=== PATIENT | male | born 1930 | race Caucasian/White ===

== ENCOUNTER 2017-02-09 14:02 | Emergency (ER) | payer MEDICARE, OTHER ==
[2017-02-09 14:38] VITALS: BP 117/53
--- NOTE | 2017-02-09 15:09 | EDM.PDOC ---
ED HPI RENAL/ - General Chief Complaint: Genitourinary Problem Stated Complaint: URINARY CATHETER ISSUE Time Seen by Provider: 02/09/17 15:01 Source: Reports: Patient, RN notes reviewed History Limitations: Reports: No limitations - History of Present Illness INITIAL COMMENTS - FREE TEXT/NARRATIVE: 86-year-old gentleman presents emergency department today with problem with his Quinones catheter the catheter itself is functioning but the strap that holds the bag to his leg broken - Related Data Allergies/ADRs: Allergies Allergy/AdvReac Type Severity Reaction Status Date / Time No Known Allergies Allergy Verified 02/09/17 14:51 Home Meds: Home Meds atorvaSTATin [Lipitor] 10 mg PO BEDTIME 04/25/15 [History] Sulfamethoxazole/Trimethoprim [Sulfamethoxazole-Tmp Ds Tablet] 1 cap PO BID [History] Aspirin [Ecotrin] 81 mg PO DAILY 01/05/17 [History] Tamsulosin [Tamsulosin 24 Hr] 0.4 mg PO DAILY 01/05/17 [History] Past Medical History HEENT History: Reports: 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 Cardiovascular History: Reports: Heart murmur, High cholesterol Genitourinary History: Reports: BPH, Retention, urinary Musculoskeletal History: Reports: Arthritis Other Oncologic History: rt ear Other Dermatologic History: rt ear cancer - Infectious Disease History Infectious Disease History: Reports: Other (see below) Other Infectious Disease History: unknown - Past Surgical History GI Surgical History: Reports: Appendectomy, Colonoscopy Social & Family History - Tobacco Use Smoking Status *Q: Never Smoker - Caffeine Use Caffeine Use: Reports: Coffee - Alcohol Use Days Per Week of Alcohol Use: 0 - Recreational Drug Use Recreational Drug Use: No ED ROS GENERAL - Review of Systems Review Of Systems: See Below Constitutional: Reports: no symptoms GI/Abdominal: Reports: No symptoms : Reports: no symptoms ED EXAM, RENAL/ - Physical Exam Exam: See Below Text/Narrative:: Nursing staff fireplace the leg bag is functioning no issues Exam Limited By: No limitations General Appearance: alert (He says none), WD/WN, no apparent distress Course - Vital Signs Last Recorded V/S: Last Vital Signs Temp 96.6 F 02/09/17 14:57 Pulse 70 02/09/17 14:57 Resp 15 02/09/17 14:57 BP 117/53 L 02/09/17 14:57 Pulse Ox 97 02/09/17 14:57 Departure - Departure Time of Disposition: 15:09 Disposition: Home, Self-Care 01 Condition: good Clinical Impression: Urinary catheter complication Qualifiers: Encounter type: initial encounter Qualified Code(s): T83.9XXA - Unspecified complication of genitourinary prosthetic device, implant and graft, initial encounter Forms: ED Department Discharge Additional Instructions: Followup with primary care as needed - Assessment/Plan Plan: Assessment Acuity = acute Site and laterality = leg bag strap failure Etiology = stress fracture of the plastic none Manifestations = none Location of injury = home Lab values = none Plan Catheter is functioning leg bag appears to be secured in place followup with primary care as needed Patient was in agreement with the plan all questions were answered, they were instructed to return to the emergency department or call for worsening symptoms. This note was dictated using [employer] voice recognition software please call with any questions.
== END 2017-02-09 15:18 | disposition home or self-care (01) ==
LOC: JP.ED 14:02
DX: T83.9XXA Unspecified complication of genitourinary prosthetic device, implant and graft, initial encounter (principal); Z79.82 Long term (current) use of aspirin; Z79.899 Other long term (current) drug therapy; E78.00 Pure hypercholesterolemia, unspecified; Z90.49 Acquired absence of other specified parts of digestive tract
CPT/HCPCS: 99282; 99283

== ENCOUNTER 2017-03-16 16:17 | Emergency (ER) | payer MEDICARE, OTHER ==
[2017-03-16 16:33] VITALS: BP 110/62
--- NOTE | 2017-03-16 17:13 | EDM.PDOC ---
ED HPI RENAL/ - General Chief Complaint: Genitourinary Problem Stated Complaint: CATH PROBLEMS Time Seen by Provider: 03/16/17 17:05 Source: Reports: Patient, RN notes reviewed History Limitations: Reports: No limitations - History of Present Illness INITIAL COMMENTS - FREE TEXT/NARRATIVE: 78-year-old gentleman presents emergency department today with complaints of catheter problems he does have a leg bag in place wears a chronic catheter unfortunately he had difficulty connecting his catheter after he emptied the bag. This catheter has been in for about a month and he would like to change today as well, denies any other symptoms - Related Data Allergies/ADRs: Allergies Allergy/AdvReac Type Severity Reaction Status Date / Time No Known Allergies Allergy Verified 02/09/17 14:51 Home Meds: Home Meds atorvaSTATin [Lipitor] 10 mg PO BEDTIME 04/25/15 [History] Sulfamethoxazole/Trimethoprim [Sulfamethoxazole-Tmp Ds Tablet] 1 cap PO BID [History] Aspirin [Ecotrin] 81 mg PO DAILY 01/05/17 [History] Tamsulosin [Tamsulosin 24 Hr] 0.4 mg PO DAILY 01/05/17 [History] Past Medical History HEENT History: Reports: 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 Cardiovascular History: Reports: Heart murmur, High cholesterol Genitourinary History: Reports: BPH, Retention, urinary Musculoskeletal History: Reports: Arthritis Other Oncologic History: rt ear Other Dermatologic History: rt ear cancer - Infectious Disease History Infectious Disease History: Reports: Other (see below) Other Infectious Disease History: unknown - Past Surgical History GI Surgical History: Reports: Appendectomy, Colonoscopy Social & Family History - Tobacco Use Smoking Status *Q: Never Smoker - Caffeine Use Caffeine Use: Reports: Coffee - Alcohol Use Days Per Week of Alcohol Use: 0 - Recreational Drug Use Recreational Drug Use: No ED ROS GENERAL - Review of Systems Review Of Systems: See Below Constitutional: Reports: no symptoms Respiratory: Reports: No Symptoms Cardiovascular: Reports: No symptoms : Reports: other (Catheter problem) ED EXAM, RENAL/ - Physical Exam Exam: See Below Text/Narrative:: Catheter had broken apart above the valve is difficult for this to fit back together, new Bag catheter replaced Exam Limited By: No limitations GI/Abdominal: soft, non tender Course - Vital Signs Last Recorded V/S: Last Vital Signs Temp 98.6 F 03/16/17 16:32 Pulse 62 03/16/17 16:32 Resp 18 03/16/17 16:32 BP 110/62 03/16/17 16:32 Pulse Ox - Orders/Labs/Meds Orders: Active Orders 24 hr Category Date Time Status Quinones Catheter Insertion [Insert Urinary Catheter] [OM. Care 03/16/17 17:15 Ordered PC] Q24H Urinary Catheter Assessment [RC] ASDIRECTED Care 03/16/17 17:09 Ordered Departure - Departure Time of Disposition: 17:12 Disposition: Home, Self-Care 01 Condition: good Clinical Impression: Urinary catheter complication Qualifiers: Encounter type: initial encounter Qualified Code(s): T83.9XXA - Unspecified complication of genitourinary prosthetic device, implant and graft, initial encounter Forms: ED Department Discharge Additional Instructions: Keep your regular followup appointments with Dr. Tellez - My Orders Last 24 Hours: My Active Orders 03/16/17 17:09 Urinary Catheter Assessment [RC] ASDIRECTED 03/16/17 17:15 Quinones Catheter Insertion [Insert Urinary Catheter] [OM.PC] Q24H - Assessment/Plan Last 24 Hours: My Active Orders 03/16/17 17:09 Urinary Catheter Assessment [RC] ASDIRECTED 03/16/17 17:15 Quinones Catheter Insertion [Insert Urinary Catheter] [OM.PC] Q24H Plan: Assessment Acuity = acute Site and laterality = catheter problem mechanical Etiology = mechanical failure Manifestations = none Location of injury = home Lab values = none Plan Keep regular follow up appointment with primary care Patient was in agreement with the plan all questions were answered, they were instructed to return to the emergency department or call for worsening symptoms. This note was dictated using [employer] voice recognition software please call with any questions.
== END 2017-03-16 17:42 | disposition home or self-care (01) ==
LOC: JP.ED 16:17
DX: T83.9XXA Unspecified complication of genitourinary prosthetic device, implant and graft, initial encounter (principal); E78.00 Pure hypercholesterolemia, unspecified; Z79.82 Long term (current) use of aspirin; Z79.899 Other long term (current) drug therapy; Z90.49 Acquired absence of other specified parts of digestive tract; Z85.22 Personal history of malignant neoplasm of nasal cavities, middle ear, and accessory sinuses
CPT/HCPCS: 51702; 99282; 99283-25

== ENCOUNTER 2017-06-09 11:05 | Emergency (ER) | payer MEDICARE, OTHER ==
--- NOTE | 2017-06-09 11:36 | EDM.PDOC ---
ED HPI GENERAL MEDICAL PROBLEM - General Chief Complaint: Genitourinary Problem Stated Complaint: ISSUES WITH CATH Time Seen by Provider: 06/09/17 11:33 Source of Information: Reports: Patient History Limitations: Reports: No Limitations - History of Present Illness INITIAL COMMENTS - FREE TEXT/NARRATIVE: Patient has urinary leg bag but the stomach wraps broken so he presented here to get new straps. The nurses provided this for him in he was discharged. He had no questions and was in stable condition. - Related Data Allergies Allergy/AdvReac Type Severity Reaction Status Date / Time No Known Allergies Allergy Verified 02/09/17 14:51 Home Meds: Home Meds atorvaSTATin [Lipitor] 10 mg PO BEDTIME 04/25/15 [History] Sulfamethoxazole/Trimethoprim [Sulfamethoxazole-Tmp Ds Tablet] 1 cap PO BID [History] Aspirin [Ecotrin] 81 mg PO DAILY 01/05/17 [History] Tamsulosin [Tamsulosin 24 Hr] 0.4 mg PO DAILY 01/05/17 [History] Past Medical History HEENT History: Reports: Hard of Hearing Other HEENT History: cancer rt. ear Cardiovascular History: Reports: Heart Murmur, High Cholesterol Genitourinary History: Reports: BPH, Retention, Urinary Musculoskeletal History: Reports: Arthritis Other Oncologic History: rt ear Other Dermatologic History: rt ear cancer - Infectious Disease History Infectious Disease History: Reports: Other (See Below) Other Infectious Disease History: unknown - Past Surgical History GI Surgical History: Reports: Appendectomy, Colonoscopy Social & Family History - Tobacco Use Smoking Status *Q: Never Smoker - Caffeine Use Caffeine Use: Reports: Coffee - Alcohol Use Days Per Week of Alcohol Use: 0 - Recreational Drug Use Recreational Drug Use: No ED ROS GENERAL - Review of Systems Review Of Systems: ROS reveals no pertinent complaints other than HPI. ED EXAM, RENAL/ - Physical Exam Exam: Not Obtained Departure - Departure Time of Disposition: 11:35 Disposition: Home, Self-Care 01 Condition: Good Clinical Impression: Urinary catheter complication Qualifiers: Encounter type: initial encounter Qualified Code(s): T83.9XXA - Unspecified complication of genitourinary prosthetic device, implant and graft, initial encounter - Discharge Information Forms: ED Department Discharge
[2017-06-09 11:37] VITALS: BP 115/89
== END 2017-06-09 11:45 | disposition home or self-care (01) ==
LOC: JP.ED 11:05
DX: T83.9XXA Unspecified complication of genitourinary prosthetic device, implant and graft, initial encounter (principal); Z79.899 Other long term (current) drug therapy; Z79.82 Long term (current) use of aspirin; R01.1 Cardiac murmur, unspecified; E78.00 Pure hypercholesterolemia, unspecified; N40.1 Benign prostatic hyperplasia with lower urinary tract symptoms; R33.8 Other retention of urine
CPT/HCPCS: 99282; 99283

== ENCOUNTER 2017-06-29 10:44 | Observation (INO) | payer MEDICARE, OTHER ==
[2017-06-29] MEDS ORDERED: Sodium Chloride 0.9% 10 ML Syringe FLUSH PRN ×2 (11:27→16:16)
[2017-06-29] MEDS ORDERED: Sodium Chloride 0.9% 1,000 ML IV ONE (11:28)
--- NOTE | 2017-06-29 11:36 | EDM.PDOC ---
ED HPI GENERAL MEDICAL PROBLEM - General Chief Complaint: Syncope Stated Complaint: MED VIA [place]TH- SYNCOPE Time Seen by Provider: 06/29/17 11:10 Source of Information: Reports: Patient, Family History Limitations: Reports: No Limitations - History of Present Illness INITIAL COMMENTS - FREE TEXT/NARRATIVE: Roland is an 86 year old male who presents to the ED today after having a syncopal episode at the [facility] this morning. Patient was at a pancake breakfast this morning when he slumped over and started drooling. Patient then became unresponsive for approx 2 minutes, he awoke after first responders arrived and started giving patient oxygen. Patient on arrival here is alert and oriented, he denies any pain. Patient did have a fall last week and sustained a posterior head laceration. He denies any visual changes or headache. Patient reports "he thinks" he has been eating well, not drinking well per family. Patient denies any vomiting or diarrhea, endorses a long standing hx with constipation. Patient's family is here with him, he lives alone and according to his niece has steadily been declining over the last few months. They care concerned for his safety and ongoing ability to care for himself independently. Onset: Today, Sudden - Related Data Allergies Allergy/AdvReac Type Severity Reaction Status Date / Time No Known Allergies Allergy Verified 06/29/17 11:09 Home Meds: Home Meds atorvaSTATin [Lipitor] 10 mg PO BEDTIME 04/25/15 [History] Aspirin [Ecotrin] 81 mg PO DAILY 01/05/17 [History] Finasteride [Finasteride] 1 tab PO DAILY 06/29/17 [History] Past Medical History HEENT History: Reports: Hard of Hearing Other HEENT History: cancer rt. ear Cardiovascular History: Reports: Heart Murmur, High Cholesterol Genitourinary History: Reports: BPH, Retention, Urinary Musculoskeletal History: Reports: Arthritis Other Oncologic History: rt ear Other Dermatologic History: rt ear cancer - Infectious Disease History Infectious Disease History: Reports: Other (See Below) Other Infectious Disease History: unknown - Past Surgical History GI Surgical History: Reports: Appendectomy, Colonoscopy Social & Family History - Tobacco Use Smoking Status *Q: Never Smoker - Caffeine Use Caffeine Use: Reports: Coffee - Alcohol Use Days Per Week of Alcohol Use: 0 - Recreational Drug Use Recreational Drug Use: No ED ROS GENERAL - Review of Systems Review Of Systems: See Below Constitutional: Reports: Decreased Appetite, Weight Loss HEENT: Reports: No Symptoms Respiratory: Reports: No Symptoms Cardiovascular: Reports: Edema (RLE, not new per family) Endocrine: Reports: Fatigue GI/Abdominal: Reports: Constipation : Reports: Urinary Retention (indwelling rashid) Musculoskeletal: Reports: No Symptoms Skin: Reports: No Symptoms, Other (healing lac to head) Neurological: Reports: Syncope Psychiatric: Reports: No Symptoms Hematologic/Lymphatic: Reports: No Symptoms - Physical Exam Exam: See Below Exam Limited By: No Limitations General Appearance: Alert, WD/WN, No Apparent Distress Eye Exam: Bilateral Eye: EOMI, PERRL Throat/Mouth: Normal Oropharynx Head Exam: Scalp Lacerations (posterior right scalp, healing well) Neck: Supple, Full Range of Motion. No: Tender Midline Respiratory/Chest: No Respiratory Distress, Lungs Clear Cardiovascular: Normal Peripheral Pulses, Regular Rate, Rhythm, No Murmur GI/Abdominal: Normal Bowel Sounds, Soft, Non-Tender, No Distention Neuro Exam (Abbreviated): Alert, Oriented Extremities: Normal Inspection Psychiatric: Normal Affect EKG INTERPRETATION EKG Date: 06/29/17 Time: 11:37 Rhythm: NSR Rate (Beats/Min): 80 [place]: Normal P-Wave: Present QRS: RBBB ST-T: Normal [place]/PQ Interval: Prolonged Comparison: No Change (from 04/26/2015) Course - Vital Signs Last Recorded V/S: Last Vital Signs Temp 36.8 C 06/29/17 14:23 Pulse 62 06/29/17 14:23 Resp 16 06/29/17 14:23 BP 122/53 L 06/29/17 14:23 Pulse Ox 97 06/29/17 14:23 Orthostatic Blood Pressure [ 115/63 Standing] Orthostatic Blood Pressure [ 114/63 Sitting] Orthostatic Blood Pressure [ 108/63 Supine] Roland is an 86 year old male with a hx of urinary retention, pancytopenia, and syncope who presents to the ED today post syncopal episode at the [facility]. Please refer to HPI and focused exam. Patient on exam is alert and oriented, he does not exhibit any neuro/focal deficits. He is non-toxic appearing. Modestly dehydrated. PIV established, orthostatic vital signs as noted above, patient given 1 liter of NS over 2 hours. Concerns for head injury/ intracranial process given hx of fall one week ago, CT scan obtained of head and is unremarkable. EKG on arrival shows a RBBB and is unchanged from 2 years ago. Patient denies any pain/sob/vomiting/diarrhea. He does have unilateral right LE +2 pitting edema which patient states is not new. 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 Blood work today returns with a normal white count, HGB is mildly low at 11.1. Platelet count is normal at 204. CMP returns with elevated BUN of 26, creatinine of 1.5 and GFR of 57. Remaining CMP is within normal limits. I did check a troponin and BNP on patient given his hx, these are unremarkable as well. Patient does endorse feeling generally weak and family is extremely concerned about patient living alone as well as driving which he continues to do. administrative services officer spoke with patient and family, patient really has no desire to live anywhere else. CT scan came back with left subdural hematoma, non-acute appearing, 7 mm in size with no midline shift. Likely from fall last week. I spoke with [facility], Neurosurgeon there, Dr. Elliott reviewed the CT and felt that patient was stable to stay here for observation with repeat CT scan in the morning. Patient should not receive any NSAIDs such as ibuprofen or Aspirin and should avoid any alcohol. Patient does not need to follow up from a neurosurgery standpoint unless repeat CT scan is worrisome or other concerns arise. I discussed patient and work up with Dr. Robledo, hospitalist, who has agreed to admit patient. Patient and family updated. UA does return positive for nitrite, 10-20 WBC's and moderate leukocyte esterase. UC pending. Will inform Dr. Robledo who can decide on antibiotic therapy. - Orders/Labs/Meds Orders: Active Orders 24 hr Category Date Time Status Orthostatic Vital Signs [RC] ASDIRECTED Care 06/29/17 11:26 Active Peripheral IV Care [RC] . DIRECTED Care 06/29/17 11:27 Active Head wo Cont [CT] Stat Exams 06/29/17 11:38 Taken CULTURE URINE [RM] Stat Lab 06/29/17 14:41 Ordered Sodium Chloride 0.9% [Saline Flush] Med 06/29/17 11:27 Active 10 ml FLUSH ASDIRECTED PRN Peripheral IV Insertion Adult [OM.PC] Routine Oth 06/29/17 11:27 Ordered Medication Orders Sodium Chloride (Saline Flush) 10 ml FLUSH ASDIRECTED PRN PRN Reason: Keep Vein Open Labs: Laboratory Tests 06/29/17 06/29/17 06/29/17 Range/Units 11:35 11:35 11:35 WBC 9.0 (4.5-11.0) K/uL RBC 3.33 L (4.30-5.90) M/uL Hgb 11.1 L (12.0-15.0) g/dL Hct 33.4 L (40.0-54.0) % MCV 100 H (80-98) fL MCH 33 H (27-31) pg MCHC 33 (32-36) % Plt Count 204 (150-400) K/uL Neut % (Auto) 85 H (36-66) % Lymph % (Auto) 5 L (24-44) % Morris % (Auto) 9 H (2-6) % Eos % (Auto) 0 L (2-4) % Baso % (Auto) 1 (0-1) % Sodium 142 (140-148) mmol/L Potassium 3.9 (3.6-5.2) mmol/L Chloride 107 (100-108) mmol/L Carbon Dioxide 31 (21-32) mmol/L Anion Gap 3.6 L (5.0-14.0) mmol/L BUN 26 H D (7-18) mg/dL Creatinine 1.2 D (0.8-1.3) mg/dL Est Cr Clr Drug Dosing 42.73 mL/min Estimated GFR (MDRD) 57 L (>60) Glucose 185 H (74-106) mg/dL Calcium 8.4 L (8.5-10.1) mg/dL Total Bilirubin 0.7 (0.2-1.0) mg/dL AST 24 (15-37) U/L ALT 20 (12-78) U/L Alkaline Phosphatase 70 (46-116) U/L Troponin I < 0.017 (0.000-0.056) ng/mL [id number]-I-Zbfoatcftal Pept 212 (5-450) pg/mL Total Protein 6.7 (6.4-8.2) g/dL Albumin 3.1 L (3.4-5.0) g/dL Globulin 3.6 H (2.3-3.5) g/dL Albumin/Globulin Ratio 0.9 L (1.2-2.2) Urine Color Urine Appearance Urine pH (4.5-8.0) Ur Specific [place] (1.008-1.030) Urine Protein (NEGATIVE) mg/dL Urine Glucose (UA) (NEGATIVE) mg/dL Urine Ketones (NEGATIVE) mg/dL Urine Occult Blood (NEGATIVE) Urine Nitrite (NEGAITVE) Urine Bilirubin (NEGATIVE) Urine Urobilinogen (NORMAL) mg/dL Ur Leukocyte Esterase (NEGATIVE) Urine RBC (0-5) Urine WBC (0-5) Ur Epithelial Cells Amorphous Sediment Urine Bacteria Urine Mucus 06/29/17 Range/Units 13:29 WBC (4.5-11.0) K/uL RBC (4.30-5.90) M/uL Hgb (12.0-15.0) g/dL Hct (40.0-54.0) % MCV (80-98) fL MCH (27-31) pg MCHC (32-36) % Plt Count (150-400) K/uL Neut % (Auto) (36-66) % Lymph % (Auto) (24-44) % Morris % (Auto) (2-6) % Eos % (Auto) (2-4) % Baso % (Auto) (0-1) % Sodium (140-148) mmol/L Potassium (3.6-5.2) mmol/L Chloride (100-108) mmol/L Carbon Dioxide (21-32) mmol/L Anion Gap (5.0-14.0) mmol/L BUN (7-18) mg/dL Creatinine (0.8-1.3) mg/dL Est Cr Clr Drug Dosing mL/min Estimated GFR (MDRD) (>60) Glucose (74-106) mg/dL Calcium (8.5-10.1) mg/dL Total Bilirubin (0.2-1.0) mg/dL AST (15-37) U/L ALT (12-78) U/L Alkaline Phosphatase (46-116) U/L Troponin I (0.000-0.056) ng/mL Kkk-C-Sivkmbnbbtr Pept (5-450) pg/mL Total Protein (6.4-8.2) g/dL Albumin (3.4-5.0) g/dL Globulin (2.3-3.5) g/dL Albumin/Globulin Ratio (1.2-2.2) Urine Color Yellow Urine Appearance Cloudy Urine pH 6.0 (4.5-8.0) Ur Specific [place] 1.020 (1.008-1.030) Urine Protein Negative (NEGATIVE) mg/dL Urine Glucose (UA) Normal (NEGATIVE) mg/dL Urine Ketones Negative (NEGATIVE) mg/dL Urine Occult Blood Moderate (NEGATIVE) Urine Nitrite Positive H (NEGAITVE) Urine Bilirubin Small (NEGATIVE) Urine Urobilinogen 4 (NORMAL) mg/dL Ur Leukocyte Esterase Moderate (NEGATIVE) Urine RBC 0-5 (0-5) Urine WBC 10-20 H (0-5) Ur Epithelial Cells Not seen Amorphous Sediment Rare Urine Bacteria Moderate Urine Mucus Not seen Meds: Medications Generic Name Dose Route Start Last Admin Trade Name Freq PRN Reason Stop Dose Admin Sodium Chloride 10 ml 06/29/17 11:27 Saline Flush FLUSH ASDIRECTED PRN Keep Vein Open Discontinued Medications Generic Name Dose Route Start Last Admin Trade Name Freq PRN Reason Stop Dose Admin Sodium Chloride 1,000 mls @ 500 mls/hr 06/29/17 11:28 06/29/17 12:46 Normal Saline IV 06/29/17 13:27 500 mls/hr .BOLUS ONE Administration Departure - Departure Time of Disposition: 15:30 Disposition: Admitted As Inpatient 64 Condition: Good Clinical Impression: Generalized weakness, Asymptomatic bacteriuria Subdural hematoma, post-traumatic Qualifiers: Encounter type: initial encounter Loss of consciousness presence/duration: with LOC of unspecified duration Qualified Code(s): S06.5X9A - Traumatic subdural hemorrhage with loss of consciousness of unspecified duration, initial encounter Syncope Qualifiers: Syncope type: vasovagal syncope Qualified Code(s): R55 - Syncope and collapse - Discharge Information Forms: ED Department Discharge - My Orders Last 24 Hours: My Active Orders 06/29/17 11:26 Orthostatic Vital Signs [RC] ASDIRECTED 06/29/17 11:27 Peripheral IV Care [RC] . DIRECTED Sodium Chloride 0.9% [Saline Flush] 10 ml FLUSH ASDIRECTED PRN Peripheral IV Insertion Adult [OM.PC] Routine 06/29/17 11:38 Head wo Cont [CT] Stat 06/29/17 14:41 CULTURE URINE [RM] Stat - Assessment/Plan Last 24 Hours: My Active Orders 06/29/17 11:26 Orthostatic Vital Signs [RC] ASDIRECTED 06/29/17 11:27 Peripheral IV Care [RC] . DIRECTED Sodium Chloride 0.9% [Saline Flush] 10 ml FLUSH ASDIRECTED PRN Peripheral IV Insertion Adult [OM.PC] Routine 06/29/17 11:38 Head wo Cont [CT] Stat 06/29/17 14:41 CULTURE URINE [RM] Stat
--- NOTE | 2017-06-29 15:32 | PCM.HP ---
H&P History of Present Illness - General Date of Service: 06/29/17 Admit Problem/Dx: Admission Diagnosis/Problem Admission Diagnosis/Problem Subdural hematoma Source of Information: Patient, Family, Provider History Limitations: Reports: No Limitations - History of Present Illness Initial Comments - Free Text/Narative: Mr. Shepherd is an 86-year-old gentleman who is admitted to observation status through the emergency department after experiencing a syncopal episode earlier today. Patient and family give a history that he has lost ground over the past few months and has become progressively more weak. Approximately one week ago he fell hitting the back of his head, this episode was unwitnessed but the patient does not think that he lost consciousness. Today he was out to eat breakfast with family members, for a few minutes before the syncopal episode reported not feeling well with weakness and lightheadedness. He then developed loss of consciousness and was out for a minute or 2. He feels well now and denies significant pain also denies any related chest pain or pressure or palpitations. Orthostatic vital signs in the emergency department were unremarkable and these had no significant rhythm abnormalities noted on cardiac monitoring. He does have an indwelling Quinones catheter because of bladder outlet obstruction, urinalysis today shows evidence of urinary tract infection. CT scan of the head shows a subacute subdural hematoma right likely related to his fall one week ago. CT scan has been reviewed by neurosurgery, there is no indication for surgery at this time and they've recommended that he remain off all blood thinners and have a follow-up CT scan of the head in the morning. - Related Data Allergies/Adverse Reactions: Allergies Allergy/AdvReac Type Severity Reaction Status Date / Time No Known Allergies Allergy Verified 06/29/17 11:09 Home Medications: Home Meds atorvaSTATin [Lipitor] 10 mg PO BEDTIME 04/25/15 [History] Aspirin [Ecotrin] 81 mg PO DAILY 01/05/17 [History] Finasteride [Finasteride] 1 tab PO DAILY 06/29/17 [History] Past Medical History HEENT History: Reports: Hard of Hearing Other HEENT History: cancer rt. ear Cardiovascular History: Reports: Heart Murmur, High Cholesterol Genitourinary History: Reports: BPH, Retention, Urinary Musculoskeletal History: Reports: Arthritis Other Oncologic History: rt ear Other Dermatologic History: rt ear cancer - Infectious Disease History Infectious Disease History: Reports: Other (See Below) Other Infectious Disease History: unknown - Past Surgical History GI Surgical History: Reports: Appendectomy, Colonoscopy Social & Family History - Tobacco Use Smoking Status *Q: Never Smoker - Caffeine Use Caffeine Use: Reports: Coffee - Alcohol Use Days Per Week of Alcohol Use: 0 - Recreational Drug Use Recreational Drug Use: No H&P Review of Systems - Review of Systems: Review Of Systems: See Below General: Reports: Weakness. Denies: Fever, Chills HEENT: Reports: Headaches Pulmonary: Reports: No Symptoms Cardiovascular: Reports: Lightheadedness, Syncope. Denies: Chest Pain, Palpitations, Dyspnea on Exertion, Orthopnea, PND, Edema Gastrointestinal: Reports: No Symptoms Genitourinary: Reports: No Symptoms Musculoskeletal: Reports: No Symptoms Skin: Reports: No Symptoms Psychiatric: Reports: No Symptoms Neurological: Reports: No Symptoms Hematologic/Lymphatic: Reports: No Symptoms Immunologic: Reports: No Symptoms Exam - Exam Exam: See Below - Vital Signs Vital Signs: Last Vital Signs Temp 98.2 F 06/29/17 14:23 Pulse 62 06/29/17 14:23 Resp 16 06/29/17 14:23 BP 122/53 L 06/29/17 14:23 Pulse Ox 97 06/29/17 14:23 Orthostatic Blood Pressure [ 115/63 Standing] Orthostatic Blood Pressure [ 114/63 Sitting] Orthostatic Blood Pressure [ 108/63 Supine] Weight: 156 lb 8.451 oz - Exam Quality Assessment: Urinary Catheter General: Alert, Oriented, Cooperative, Mild Distress HEENT: Conjunctiva Clear, Hearing Intact, Normal Nasal Septum, Posterior Pharynx Clear, Pupils Equal. No: Mucosa Moist & [place] Neck: Supple, Trachea Midline, +2 Carotid Pulse wo Bruit Lungs: Clear to Auscultation, Normal Respiratory Effort Cardiovascular: Regular Rate, Regular Rhythm, Normal S1, Normal S2. No: Systolic Murmur, Diastolic Murmur GI/Abdominal Exam: Normal Bowel Sounds, Soft, Non-Tender, No Distention Back Exam: Normal Inspection, Full Range of Motion, NT Extremities: Normal Inspection, Normal Range of Motion Skin: Warm, Dry, Intact Neurological: Cranial Nerves Intact, Strength Equal Bilateral, Normal Speech, Sensation Intact. No: Focal Deficit Neuro Extensive - Mental Status: Alert, Oriented x3, Normal Mood/Affect, Normal Cognition, Memory Intact - Patient Data Lab Results Last 24 hrs: Laboratory Results - last 24 hr 06/29/17 06/29/17 06/29/17 Range/Units 11:35 11:35 11:35 WBC 9.0 (4.5-11.0) K/uL RBC 3.33 L (4.30-5.90) M/uL Hgb 11.1 L (12.0-15.0) g/dL Hct 33.4 L (40.0-54.0) % MCV 100 H (80-98) fL MCH 33 H (27-31) pg MCHC 33 (32-36) % Plt Count 204 (150-400) K/uL Neut % (Auto) 85 H (36-66) % Lymph % (Auto) 5 L (24-44) % [place] % (Auto) 9 H (2-6) % Eos % (Auto) 0 L (2-4) % Baso % (Auto) 1 (0-1) % Sodium 142 (140-148) mmol/L Potassium 3.9 (3.6-5.2) mmol/L Chloride 107 (100-108) mmol/L Carbon Dioxide 31 (21-32) mmol/L Anion Gap 3.6 L (5.0-14.0) mmol/L BUN 26 H D (7-18) mg/dL Creatinine 1.2 D (0.8-1.3) mg/dL Est Cr Clr Drug Dosing 42.73 mL/min Estimated GFR (MDRD) 57 L (>60) Glucose 185 H (74-106) mg/dL Calcium 8.4 L (8.5-10.1) mg/dL Total Bilirubin 0.7 (0.2-1.0) mg/dL AST 24 (15-37) U/L ALT 20 (12-78) U/L Alkaline Phosphatase 70 (46-116) U/L Troponin I < 0.017 (0.000-0.056) ng/mL Dlk-Q-Zeebmllscnk Pept 212 (5-450) pg/mL Total Protein 6.7 (6.4-8.2) g/dL Albumin 3.1 L (3.4-5.0) g/dL Globulin 3.6 H (2.3-3.5) g/dL Albumin/Globulin Ratio 0.9 L (1.2-2.2) Urine Color Urine Appearance Urine pH (4.5-8.0) Ur Specific [place] (1.008-1.030) Urine Protein (NEGATIVE) mg/dL Urine Glucose (UA) (NEGATIVE) mg/dL Urine Ketones (NEGATIVE) mg/dL Urine Occult Blood (NEGATIVE) Urine Nitrite (NEGAITVE) Urine Bilirubin (NEGATIVE) Urine Urobilinogen (NORMAL) mg/dL Ur Leukocyte Esterase (NEGATIVE) Urine RBC (0-5) Urine WBC (0-5) Ur Epithelial Cells Amorphous Sediment Urine Bacteria Urine Mucus 06/29/17 Range/Units 13:29 WBC (4.5-11.0) K/uL RBC (4.30-5.90) M/uL Hgb (12.0-15.0) g/dL Hct (40.0-54.0) % MCV (80-98) fL MCH (27-31) pg MCHC (32-36) % Plt Count (150-400) K/uL Neut % (Auto) (36-66) % Lymph % (Auto) (24-44) % [place] % (Auto) (2-6) % Eos % (Auto) (2-4) % Baso % (Auto) (0-1) % Sodium (140-148) mmol/L Potassium (3.6-5.2) mmol/L Chloride (100-108) mmol/L Carbon Dioxide (21-32) mmol/L Anion Gap (5.0-14.0) mmol/L BUN (7-18) mg/dL Creatinine (0.8-1.3) mg/dL Est Cr Clr Drug Dosing mL/min Estimated GFR (MDRD) (>60) Glucose (74-106) mg/dL Calcium (8.5-10.1) mg/dL Total Bilirubin (0.2-1.0) mg/dL AST (15-37) U/L ALT (12-78) U/L Alkaline Phosphatase (46-116) U/L Troponin I (0.000-0.056) ng/mL Rwh-I-Hwuztcrtpwn Pept (5-450) pg/mL Total Protein (6.4-8.2) g/dL Albumin (3.4-5.0) g/dL Globulin (2.3-3.5) g/dL Albumin/Globulin Ratio (1.2-2.2) Urine Color Yellow Urine Appearance Cloudy Urine pH 6.0 (4.5-8.0) Ur Specific [place] 1.020 (1.008-1.030) Urine Protein Negative (NEGATIVE) mg/dL Urine Glucose (UA) Normal (NEGATIVE) mg/dL Urine Ketones Negative (NEGATIVE) mg/dL Urine Occult Blood Moderate (NEGATIVE) Urine Nitrite Positive H (NEGAITVE) Urine Bilirubin Small (NEGATIVE) Urine Urobilinogen 4 (NORMAL) mg/dL Ur Leukocyte Esterase Moderate (NEGATIVE) Urine RBC 0-5 (0-5) Urine WBC 10-20 H (0-5) Ur Epithelial Cells Not seen Amorphous Sediment Rare Urine Bacteria Moderate Urine Mucus Not seen Result Diagrams: 06/29/17 11:35 06/29/17 11:35 *Q Meaningful Use (ADM) - VTE *Q VTE Criteria *Q: VTE Mechanical Contraindications *Q: At Risk for Falls VTE Pharmacological Contraindications *Q: Risk of Bleeding - VTE Risk Assess *Q Each Risk Factor Represents 1 Point: None Total Score 1 Point Risk Factors: 0 Each Risk Factor Represents 2 Points: None Total Score 2 Point Risk Factors: 0 Each Risk Factor Represents 3 Points: Age 75 Years or Greater Total Score 3 Point Risk Factors: 3 Each Risk Factor Represents 5 Points: None Total Score 5 Point Risk Factors: 0 Venous Thromboembolism Risk Factor Score *Q: 3 - Stroke *Q Stroke Criteria *Q: - AMI *Q AMI Criteria *Q: Problem List Initiated/Reviewed/Updated: Yes Orders Last 24hrs: Active Orders 24 hr Category Date Time Status Patient Status Manage Transfer [TRANSFER] Routine ADT 06/29/17 14:46 Active Cardiac Monitoring [RC] .As Directed Care 06/29/17 14:46 Active Orthostatic Vital Signs [RC] ASDIRECTED Care 06/29/17 11:26 Active Peripheral IV Care [RC] . DIRECTED Care 06/29/17 11:27 Active Head wo Cont [CT] Stat Exams 06/29/17 11:38 Taken CULTURE URINE [RM] Stat Lab 06/29/17 14:44 Received Sodium Chloride 0.9% [Saline Flush] Med 06/29/17 11:27 Active 10 ml FLUSH ASDIRECTED PRN Peripheral IV Insertion Adult [OM.PC] Routine Oth 06/29/17 11:27 Ordered Resuscitation Status Routine Resus Stat 06/29/17 14:48 Ordered Medication Orders Sodium Chloride (Saline Flush) 10 ml FLUSH ASDIRECTED PRN PRN Reason: Keep Vein Open Assessment/Plan Comment:: ASSESSMENT AND PLAN Vasovagal syncope-syncopal episode this morning by history consistent with a vagal event -Cardiac monitoring -Orthostatic vital signs Subdural hematoma-subacute, likely related to recent fall. CT is been reviewed by neurosurgery, no indication for surgical intervention at the present time. -Neuro checks every 4 hours -Repeat CT scan in a.m. Urinary tract infection-indwelling Quinones catheter, urinalysis consistent with infection -IV fluids for hydration -Rocephin 1 g IV every 24 hours -Urine culture pending MAINTENANCE ISSUES -DVT prophylaxis;SCUDs, hold on anticoagulation because of subdural hematoma -GI prophylaxis;not indicated -Quinones catheter;indwelling Quinones catheter for management of bladder outlet obstruction -Nutrition;regular diet -Nicotinic dependence;not required CODE STATUS-full code ADMISSION STATUS-this patient will be admitted to observation status, expect no more than a one night hospital stay for evaluation and management of problems as outlined above. DISPOSITION-anticipate discharge to home after the hospital stay. PRIMARY CARE PROVIDER-
[2017-06-29] MEDS ORDERED: oxyCODONE 5 MG Tab PO PRN (16:16)
[2017-06-29] MEDS ORDERED: Ondansetron 4 MG/2 ML SDV IV PRN (16:16)
[2017-06-29] MEDS ORDERED: Polyethylene Glycol 3350 Powder 17 GM Packet PO PRN (16:16)
[2017-06-29] MEDS ORDERED: Acetaminophen 325 MG Tab PO PRN (16:16)
[2017-06-29] MEDS ORDERED: Docusate Sodium 100 MG Cap PO PRN (16:16)
[2017-06-29] MEDS ORDERED: Magnesium Hydroxide 400 MG/5 ML Susp 30 ML Cup PO PRN (16:16)
[2017-06-29] MEDS ORDERED: cefTRIAXone 1 GM in Sodium Chloride 0.9% 50 ML IV SCH (17:00)
[2017-06-29] MEDS: Sodium Chloride 0.9% 1,000 ML IV SCH (17:09)
[2017-06-29] MEDS ORDERED: Bacitracin Oint 1 GM U/D Packet TOP SCH (18:30)
[2017-06-29] MEDS ORDERED: atorvaSTATin 10 MG Tab PO SCH (21:00)
[2017-06-30] MEDS: Sodium Chloride 0.9% 1,000 ML IV SCH (01:26)
[2017-06-30 08:33] VITALS: BP 102/69
[2017-06-30] MEDS ORDERED: Finasteride 5 MG Tab PO SCH (09:00)
[2017-06-30] MEDS ORDERED: Bacitracin Oint 1 GM U/D Packet TOP SCH (09:00)
--- NOTE | 2017-06-30 11:10 | PCM.DCSUM1 ---
Discharge Summary - Hospital Course Brief History: Mr. Shepherd is an 86-year-old gentleman who was admitted to observation status following a vasovagal syncopal episode, subacute subdural hematoma, and urinary tract infection. - Discharge Data Discharge Date: 06/30/17 Discharge Disposition: Home, W Home Health Agency 06 Condition: Fair - Discharge Diagnosis/Problem(s) (1) UTI (urinary tract infection) due to urinary indwelling catheter SNOMED Code(s): 234926389 ICD Code: T83.511A - I/I REACT D/T INDWELLING URETHRAL CATHETER, INIT; N39.0 - URINARY TRACT INFECTION, SITE NOT SPECIFIED Status: Acute Current Visit: Yes (2) Subdural hematoma, post-traumatic SNOMED Code(s): 60437930 ICD Code: S06.5X9A - TRAUM SUBDR HEM W LOC OF UNSP DURATION, INIT Status: Acute Current Visit: Yes Qualifiers: Encounter type: initial encounter Loss of consciousness presence/duration: with LOC of unspecified duration Qualified Code(s): S06.5X9A - Traumatic subdural hemorrhage with loss of consciousness of unspecified duration, initial encounter (3) Syncope SNOMED Code(s): 373629889 ICD Code: R55 - SYNCOPE AND COLLAPSE Status: Acute Current Visit: Yes Qualifiers: Syncope type: vasovagal syncope Qualified Code(s): R55 - Syncope and collapse - Patient Summary/Data Hospital Course: Mr. Shepherd presented to the emergency department after he experienced a syncopal episode while at the [facility] in [place]. He became weak and lightheaded over. A few minutes and then experienced a transient episode of loss of consciousness. He has had previous episodes in the past that were similar to this and felt to be vaguely mediated. He was alert and oriented in the emergency department, one week prior to admission he fallen backwards and injured his had. CT scan of the head was obtained and did show evidence of a subacute subdural hematoma that was very small. CT scan was reviewed by neurosurgery and they recommended a follow-up CT scan the following morning, but there was no indication for surgical intervention. Vital signs were stable in the emergency department including orthostatic vitals and telemetry monitoring showed no significant dysrhythmias. Urinalysis did show evidence of urinary tract infection. On admission culture was obtained and he was started on IV fluids as well as IV Rocephin. He was placed on cardiac monitoring but had no significant dysrhythmias during hospital stay. Orthostatic vital signs were checked with no significant drops and neuro checks were obtained on a regular basis with no significant change in neurologic status. By the following morning he improved and was able to walk short distances using a walker. He will be discharged home with a 2 wheeled walker and will be scheduled for home care with home physical therapy and occupational therapy. Urine culture is pending at the time of discharge, he will be placed on oral antibiotic therapy with Omnicef 300 mg by mouth twice a day for an additional 6 days. He should have another follow-up CT scan of the head in 4 weeks and a follow-up appointment will be scheduled with his primary care provider Dr. Tellez within one week. Activity will be as tolerated, he's instructed to use the walker at all times when he is ambulating. He will remain on a regular diet. He has been instructed to avoid all anticoagulants including aspirin and nonsteroidal therapy. - Patient Instructions Diet: Usual Diet as Tolerated Activity: As Tolerated Other/Special Instructions: Schedule follow-up appointment with Dr. Tellez within one week. Patient will require a CT scan in one month for follow-up of his subdural hematoma. Please arrange for home care with home physical therapy and occupational therapy after discharge. - Discharge Plan Prescriptions/Med Rec: Cefdinir [Omnicef] 300 mg PO BID #12 cap Home Medications: Home Meds atorvaSTATin [Lipitor] 10 mg PO BEDTIME 04/25/15 [History] Aspirin [Ecotrin] 81 mg PO DAILY 01/05/17 [History] Finasteride 1 tab PO DAILY 06/29/17 [History] Cefdinir [Omnicef] 300 mg PO BID #12 cap 06/30/17 [Rx] Referrals: Enrique Tellez MD [Physician] - - Patient Data Vitals - Most Recent: Last Vital Signs Temp 98.2 F 06/30/17 08:30 Pulse 61 06/30/17 08:30 Resp 16 06/30/17 08:30 BP 102/69 06/30/17 08:30 Pulse Ox 95 06/30/17 08:30 Orthostatic Blood Pressure [ 112/64 Standing] Orthostatic Blood Pressure [ 114/63 Sitting] Orthostatic Blood Pressure [ 122/69 Supine] Weight - Most Recent: 156 lb 8.451 oz I&O - Last 24 hours: Intake & Output 06/29/17 06/30/17 06/30/17 22:59 06:59 14:59 Intake Total 807 893 280 Output Total 300 350 300 Balance 507 543 -20 Lab Results - Last 24 hrs: Laboratory Results - last 24 hr 06/29/17 06/30/17 06/30/17 Range/Units 16:58 05:30 05:30 WBC 6.7 (4.5-11.0) K/uL RBC 3.10 L (4.30-5.90) M/uL Hgb 10.4 L (12.0-15.0) g/dL Hct 31.3 L (40.0-54.0) % MCV 101 H (80-98) fL MCH 34 H (27-31) pg MCHC 33 (32-36) % Plt Count 188 (150-400) K/uL Neut % (Auto) 68 H (36-66) % Lymph % (Auto) 18 L (24-44) % [place] % (Auto) 9 H (2-6) % Eos % (Auto) 4 (2-4) % Baso % (Auto) 1 (0-1) % Sodium 142 (140-148) mmol/L Potassium 4.3 (3.6-5.2) mmol/L Chloride 110 H (100-108) mmol/L Carbon Dioxide 29 (21-32) mmol/L Anion Gap 7.3 (5.0-14.0) mmol/L BUN 19 H (7-18) mg/dL Creatinine 1.0 (0.8-1.3) mg/dL Est Cr Clr Drug Dosing 51.28 mL/min Estimated GFR (MDRD) > 60 (>60) Glucose 86 (74-106) mg/dL Calcium 8.0 L (8.5-10.1) mg/dL Troponin I < 0.017 (0.000-0.056) ng/mL Med Orders - Current: Current Medications Acetaminophen (Tylenol) 650 mg PO Q4H PRN PRN Reason: Pain (Mild 1-3)/fever Atorvastatin Calcium (Lipitor) 10 mg PO BEDTIME LORI Last Admin: 06/29/17 22:26 Dose: Not Given Bacitracin (Bacitracin Oint 1 Gm) 1 dose TOP DAILY [facility] Last Admin: 06/30/17 08:56 Dose: 1 dose Docusate Sodium (Colace) 100 mg PO BID PRN PRN Reason: Constipation Finasteride (Proscar) 5 mg PO DAILY [facility] Last Admin: 06/30/17 08:51 Dose: 5 mg Sodium Chloride (Normal Saline) 1,000 mls @ 125 mls/hr IV ASDIRECTED [facility] Last Admin: 06/30/17 01:26 Dose: 125 mls/hr Ceftriaxone Sodium 1 gm/ (Sodium Chloride) 50 mls @ 100 mls/hr IV Q24H [facility] Last Admin: 06/29/17 17:32 Dose: 100 mls/hr Magnesium Hydroxide (Milk Of Magnesia) 30 ml PO Q12H PRN PRN Reason: Constipation Ondansetron HCl (Zofran) 4 mg IV Q4H PRN PRN Reason: Nausea/Vomiting Oxycodone HCl (Oxycodone) 5 mg PO Q4H PRN PRN Reason: Pain (moderate 4-6) Polyethylene Glycol (Miralax) 17 gm PO DAILY PRN PRN Reason: Constipation Sodium Chloride (Saline Flush) 10 ml FLUSH ASDIRECTED PRN PRN Reason: Keep Vein Open Discontinued Medications Bacitracin (Bacitracin Oint 1 Gm) 1 dose TOP DAILY [facility] Last Admin: 06/29/17 19:35 Dose: 1 dose Sodium Chloride (Normal Saline) 1,000 mls @ 500 mls/hr IV .BOLUS ONE Stop: 06/29/17 13:27 Last Admin: 06/29/17 12:46 Dose: 500 mls/hr Sodium Chloride (Saline Flush) 10 ml FLUSH ASDIRECTED PRN PRN Reason: Keep Vein Open *Q Meaningful Use (DIS) - VTE *Q VTE Criteria *Q: VTE Mechanical Contraindications *Q: At Risk for Falls VTE Pharmacological Contraindications *Q: Risk of Bleeding - Stroke *Q Stroke Criteria *Q: - AMI *Q AMI Criteria *Q:
== END 2017-06-30 12:50 | disposition home health service (06) ==
LOC: JP.ED 10:44 → JP.MS 14:46
PROVIDERS: ADMIT Hospitalist; ATTEND Hospitalist
DX: T83.511A Infection and inflammatory reaction due to indwelling urethral catheter, initial encounter (principal); N39.0 Urinary tract infection, site not specified; S06.5X9A Traumatic subdural hemorrhage with loss of consciousness of unspecified duration, initial encounter; R55 Syncope and collapse; E78.00 Pure hypercholesterolemia, unspecified; N40.1 Benign prostatic hyperplasia with lower urinary tract symptoms; Z79.82 Long term (current) use of aspirin; Z79.899 Other long term (current) drug therapy; Z90.49 Acquired absence of other specified parts of digestive tract; Z98.890 Other specified postprocedural states; W19.XXXA Unspecified fall, initial encounter
CPT/HCPCS: 36415; 70450; 80048; 80053; 81001; 83880; 84484; 85025; 87086; 87088; 96361; 96365; 99285; A9270; G0378; J0696; J7040; J7050; 93010; 96375; 99217; 99220

== ENCOUNTER 2017-08-31 10:00 | Inpatient (IN) | payer MEDICARE, OTHER ==
--- NOTE | 2017-08-31 10:58 | EDM.PDOC ---
ED HPI GENERAL MEDICAL PROBLEM - General Chief Complaint: Cardiovascular Problem Stated Complaint: MEDICAL [facility]IA [facility] Time Seen by Provider: 08/31/17 10:47 Source of Information: Reports: Patient, Old Records, RN Notes Reviewed History Limitations: Reports: No Limitations - History of Present Illness INITIAL COMMENTS - FREE TEXT/NARRATIVE: 86-year-old gentleman presents emergency department today following a syncopal event, he has a known history of syncopal events thought to be vagal vagal in nature also history of subdural hematoma of unclear etiology. The particular event today he was sitting in an easy chair became unresponsive for a couple of minutes EMS services were called this was at his home they had some difficulty arousing him however he was aroused by the time he was placed on the transportation cart by the time he arrives to the emergency department he has no complaints and feels he is back to his normal self - Related Data Allergies Allergy/AdvReac Type Severity Reaction Status Date / Time No Known Allergies Allergy Verified 08/31/17 10:59 Home Meds: Home Meds atorvaSTATin [Lipitor] 10 mg PO BEDTIME 04/25/15 [History] Finasteride 1 tab PO DAILY 06/29/17 [History] Cefdinir [Omnicef] 300 mg PO BID #12 cap 06/30/17 [Rx] Past Medical History HEENT History: Reports: Hard of Hearing Other HEENT History: cancer rt. ear Cardiovascular History: Reports: Heart Murmur, High Cholesterol Genitourinary History: Reports: BPH, Retention, Urinary Musculoskeletal History: Reports: Arthritis Other Oncologic History: rt ear Other Dermatologic History: rt ear cancer - Infectious Disease History Infectious Disease History: Reports: Other (See Below) Other Infectious Disease History: unknown - Past Surgical History Head Surgeries/Procedures: Reports: None GI Surgical History: Reports: Appendectomy, Colonoscopy Social & Family History - Tobacco Use Smoking Status *Q: Never Smoker - Caffeine Use Caffeine Use: Reports: Coffee - Alcohol Use Days Per Week of Alcohol Use: 0 - Recreational Drug Use Recreational Drug Use: No ED ROS GENERAL - Review of Systems Review Of Systems: See Below Constitutional: Reports: No Symptoms HEENT: Reports: No Symptoms Respiratory: Reports: No Symptoms Cardiovascular: Reports: Syncope GI/Abdominal: Reports: No Symptoms : Reports: No Symptoms Musculoskeletal: Reports: No Symptoms Skin: Reports: No Symptoms ED EXAM, GENERAL - Physical Exam Exam: See Below Exam Limited By: No Limitations General Appearance: Alert, WD/WN, No Apparent Distress Eye Exam: Bilateral Eye: Normal Inspection Nose: Normal Inspection, Normal Mucosa, No Blood Throat/Mouth: Normal Inspection, Normal Lips, Normal Teeth, Normal Gums, Normal Oropharynx, Normal Voice, No Airway Compromise Head: Atraumatic, Normocephalic Neck: Normal Inspection, Supple, Non-Tender, Full Range of Motion Respiratory/Chest: No Respiratory Distress, Lungs Clear, Normal Breath Sounds, No Accessory Muscle Use Cardiovascular: Regular Rate, Rhythm, No Murmur GI/Abdominal: Soft, Non-Tender Extremities: Non-Tender, No Pedal Edema Course - Vital Signs Last Recorded V/S: Last Vital Signs Temp 95.7 F 08/31/17 10:38 Pulse 58 L 08/31/17 11:40 Resp 15 08/31/17 11:40 BP 114/72 08/31/17 11:40 Pulse Ox 99 08/31/17 11:40 - Orders/Labs/Meds Orders: Active Orders 24 hr Category Date Time Status EKG Documentation Completion [RC] ASDIRECTED Care 08/31/17 10:55 Active CULTURE URINE [RM] Urgent Lab 08/31/17 13:57 Ordered EKG 12 Lead [EK] Stat Ther 08/31/17 10:54 Ordered Labs: Laboratory Tests 08/31/17 08/31/17 08/31/17 Range/Units 11:06 11:06 11:14 WBC 7.0 (4.5-11.0) K/uL RBC 3.54 L (4.30-5.90) M/uL Hgb 11.7 L (12.0-15.0) g/dL Hct 35.5 L (40.0-54.0) % MCV 100 H (80-98) fL MCH 33 H (27-31) pg MCHC 33 (32-36) % Plt Count 244 (150-400) K/uL Neut % (Auto) 79 H (36-66) % Lymph % (Auto) 10 L (24-44) % [place] % (Auto) 9 H (2-6) % Eos % (Auto) 1 L (2-4) % Baso % (Auto) 1 (0-1) % Sodium 141 (140-148) mmol/L Potassium 4.4 (3.6-5.2) mmol/L Chloride 105 (100-108) mmol/L Carbon Dioxide 30 (21-32) mmol/L Anion Gap 5.7 (5.0-14.0) mmol/L BUN 23 H (7-18) mg/dL Creatinine 1.1 (0.8-1.3) mg/dL Est Cr Clr Drug Dosing 44.67 mL/min Estimated GFR (MDRD) > 60 (>60) Glucose 168 H (74-106) mg/dL Calcium 8.5 (8.5-10.1) mg/dL Urine Color Yellow Urine Appearance Turbid Urine pH 6.5 (4.5-8.0) Ur Specific [place] 1.015 (1.008-1.030) Urine Protein 30 H (NEGATIVE) mg/dL Urine Glucose (UA) Normal (NEGATIVE) mg/dL Urine Ketones Negative (NEGATIVE) mg/dL Urine Occult Blood Large (NEGATIVE) Urine Nitrite Positive H (NEGAITVE) Urine Bilirubin Negative (NEGATIVE) Urine Urobilinogen Normal (NORMAL) mg/dL Ur Leukocyte Esterase Large (NEGATIVE) Urine RBC Packed H (0-5) Urine WBC Packed H (0-5) Ur Epithelial Cells Not seen Amorphous Sediment Not seen Urine Bacteria Many Urine Mucus Not seen Departure - Departure Time of Disposition: 14:00 Disposition: Admitted As Inpatient 64 Condition: Fair Clinical Impression: UTI (urinary tract infection) due to urinary indwelling catheter Qualifiers: Indwelling urinary catheter type: indwelling urethral catheter Encounter type: initial encounter Qualified Code(s): T83.511A - Infection and inflammatory reaction due to indwelling urethral catheter, initial encounter; N39.0 - Urinary tract infection, site not specified Referrals: Enrique Tellez MD [Primary Care Provider] - Forms: ED Department Discharge - My Orders Last 24 Hours: My Active Orders 08/31/17 10:54 EKG 12 Lead [EK] Stat 08/31/17 10:55 EKG Documentation Completion [RC] ASDIRECTED 08/31/17 13:57 CULTURE URINE [RM] Urgent - Assessment/Plan Last 24 Hours: My Active Orders 08/31/17 10:54 EKG 12 Lead [EK] Stat 08/31/17 10:55 EKG Documentation Completion [RC] ASDIRECTED 08/31/17 13:57 CULTURE URINE [RM] Urgent Plan: Assessment Acuity = acute Site and laterality = urinary tract infection complicated in a patient with chronic urinary catheterization, Etiology = suspicious for bacterial cause Manifestations = weakness, syncopal event Location of injury = Home Lab values = 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
--- NOTE | 2017-08-31 15:01 | PCM.HP ---
H&P History of Present Illness - General Date of Service: 08/31/17 Admit Problem/Dx: Admission Diagnosis/Problem Admission Diagnosis/Problem Complicated urinary tract infection Source of Information: Patient, Family, Provider History Limitations: Reports: No Limitations - History of Present Illness Initial Comments - Free Text/Narative: Roland presents to the emergency room today after an episode of syncope where he was sitting in his chair and suddenly collapsed and was not able to be aroused. This episode lasted for several minutes before he slowly started to come around. There was no confusion afterwards. He relatively quickly felt back to his usual self after this. He was not aware of any preceding symptoms such as chest pain, palpitations or shortness of breath. He had a very mild headache this morning but that went away without any intervention. Things were fairly normal yesterday. He thinks maybe he's had some subjective fevers the past couple of days but has not measured any temperatures. No complaints of abdominal pain or nausea. No significant change with bowel habits. He has not noticed a change in the urine in his leg bag. 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 No recent sick contacts or travel. He is on a waiting list at a local assisted living and is wondering if he's still safe to be living at home. Workup in the emergency room suggested a complicated urinary tract infection. There is no evidence for sepsis at this time but with his weakness and syncope I think he would benefit from inpatient admission with IV antibiotics and some fluids. - Related Data Allergies/Adverse Reactions: Allergies Allergy/AdvReac Type Severity Reaction Status Date / Time No Known Allergies Allergy Verified 08/31/17 15:57 Home Medications: Home Meds atorvaSTATin [Lipitor] 10 mg PO BEDTIME 04/25/15 [History] Finasteride 1 tab PO DAILY 06/29/17 [History] Past Medical History HEENT History: Reports: Hard of Hearing Other HEENT History: cancer rt. ear Cardiovascular History: Reports: Heart Murmur, High Cholesterol Genitourinary History: Reports: BPH, Retention, Urinary Musculoskeletal History: Reports: Arthritis Other Oncologic History: rt ear Other Dermatologic History: rt ear cancer - Infectious Disease History Infectious Disease History: Reports: Other (See Below) Other Infectious Disease History: unknown - Past Surgical History Head Surgeries/Procedures: Reports: None GI Surgical History: Reports: Appendectomy, Colonoscopy Social & Family History - Family History Cardiac: Denies: CAD - Tobacco Use Smoking Status *Q: Never Smoker - Caffeine Use Caffeine Use: Reports: Coffee - Alcohol Use Days Per Week of Alcohol Use: 0 - Recreational Drug Use Recreational Drug Use: No H&P Review of Systems - Review of Systems: Review Of Systems: See Below Free Text/Narrative: A complete 12 point review of systems was obtained. Pertinent positives and negatives are noted in the history of present illness. All other systems were reviewed and were negative except as noted. Exam - Exam Exam: See Below - Vital Signs Vital Signs: Last Vital Signs Temp 36.9 C 08/31/17 14:29 Pulse 80 08/31/17 14:29 Resp 15 08/31/17 14:29 BP 102/57 L 08/31/17 14:29 Pulse Ox 98 08/31/17 14:29 Weight: 68.039 kg - Exam Quality Assessment: No: Supplemental Oxygen General: Alert, Oriented, Cooperative. No: Mild Distress HEENT: Conjunctiva Clear, Mucosa Moist & [place]. No: Scleral Icterus Neck: Supple, Trachea Midline. No: Lymphadenopathy Lungs: Clear to Auscultation, Normal Respiratory Effort Cardiovascular: Regular Rate, Regular Rhythm GI/Abdominal Exam: Normal Bowel Sounds, Soft, No Distention, Tender (Mild suprapubic tenderness) Back Exam: Normal Inspection. No: Muscle Spasm Extremities: Pedal Edema (Mild bilateral ankle edema). No: Increased Warmth Skin: Warm, Dry Neuro Extensive - Mental Status: Alert, Oriented x3, Nl Response to Commands Neuro Extensive - Motor, Sensory, Reflexes: CN II-XII Intact. No: Dysarthria, Abnormal Motor, Tremor Psychiatric: Alert, Normal Affect - Patient Data Lab Results Last 24 hrs: Laboratory Results - last 24 hr 08/31/17 08/31/17 08/31/17 Range/Units 11:06 11:06 11:14 WBC 7.0 (4.5-11.0) K/uL RBC 3.54 L (4.30-5.90) M/uL Hgb 11.7 L (12.0-15.0) g/dL Hct 35.5 L (40.0-54.0) % MCV 100 H (80-98) fL MCH 33 H (27-31) pg MCHC 33 (32-36) % Plt Count 244 (150-400) K/uL Neut % (Auto) 79 H (36-66) % Lymph % (Auto) 10 L (24-44) % [place] % (Auto) 9 H (2-6) % Eos % (Auto) 1 L (2-4) % Baso % (Auto) 1 (0-1) % Sodium 141 (140-148) mmol/L Potassium 4.4 (3.6-5.2) mmol/L Chloride 105 (100-108) mmol/L Carbon Dioxide 30 (21-32) mmol/L Anion Gap 5.7 (5.0-14.0) mmol/L BUN 23 H (7-18) mg/dL Creatinine 1.1 (0.8-1.3) mg/dL Est Cr Clr Drug Dosing 44.67 mL/min Estimated GFR (MDRD) > 60 (>60) Glucose 168 H (74-106) mg/dL Calcium 8.5 (8.5-10.1) mg/dL Urine Color Yellow Urine Appearance Turbid Urine pH 6.5 (4.5-8.0) Ur Specific [place] 1.015 (1.008-1.030) Urine Protein 30 H (NEGATIVE) mg/dL Urine Glucose (UA) Normal (NEGATIVE) mg/dL Urine Ketones Negative (NEGATIVE) mg/dL Urine Occult Blood Large (NEGATIVE) Urine Nitrite Positive H (NEGAITVE) Urine Bilirubin Negative (NEGATIVE) Urine Urobilinogen Normal (NORMAL) mg/dL Ur Leukocyte Esterase Large (NEGATIVE) Urine RBC Packed H (0-5) Urine WBC Packed H (0-5) Ur Epithelial Cells Not seen Amorphous Sediment Not seen Urine Bacteria Many Urine Mucus Not seen Result Diagrams: 08/31/17 11:06 08/31/17 11:06 EKG INTERPRETATION EKG Date: 08/31/17 Rhythm: NSR Rate (Beats/Min): 64 [place]: Normal P-Wave: Present QRS: RBBB ST-T: Normal QT: Normal EKG Interpretation Comments: Images personally reviewed 1 PVC noted *Q Meaningful Use (ADM) - VTE *Q VTE Criteria *Q: - VTE Risk Assess *Q Each Risk Factor Represents 1 Point: Swollen Legs, Current Total Score 1 Point Risk Factors: 1 Each Risk Factor Represents 2 Points: None Total Score 2 Point Risk Factors: 0 Each Risk Factor Represents 3 Points: Age 75 Years or Greater Total Score 3 Point Risk Factors: 3 Each Risk Factor Represents 5 Points: None Total Score 5 Point Risk Factors: 0 Venous Thromboembolism Risk Factor Score *Q: 4 - Stroke *Q Stroke Criteria *Q: - AMI *Q AMI Criteria *Q: - Problem List (1) UTI (urinary tract infection) due to urinary indwelling catheter SNOMED Code(s): 486139593 ICD Code: T83.511A - I/I REACT D/T INDWELLING URETHRAL CATHETER, INIT; N39.0 - URINARY TRACT INFECTION, SITE NOT SPECIFIED Status: Acute Current Visit: Yes Qualifiers: Indwelling urinary catheter type: indwelling urethral catheter Encounter type: initial encounter Qualified Code(s): T83.511A - Infection and inflammatory reaction due to indwelling urethral catheter, initial encounter; N39.0 - Urinary tract infection, site not specified (2) Syncope SNOMED Code(s): 569516262 ICD Code: R55 - SYNCOPE AND COLLAPSE Status: Acute Current Visit: No Qualifiers: Syncope type: vasovagal syncope Qualified Code(s): R55 - Syncope and collapse Problem List Initiated/Reviewed/Updated: Yes Orders Last 24hrs: Active Orders 24 hr Category Date Time Status Patient Status Manage Transfer [TRANSFER] Routine ADT 08/31/17 14:53 Ordered EKG Documentation Completion [RC] ASDIRECTED Care 08/31/17 10:55 Active CULTURE URINE [RM] Urgent Lab 08/31/17 14:00 Received Sodium Chloride 0.9% [Normal Saline] 1,000 ml Med 08/31/17 15:00 Active IV ASDIRECTED cefTRIAXone [Rocephin] 2 gm Med 08/31/17 15:00 Active Sodium Chloride 0.9% [Normal Saline] 50 ml IV Q24H Resuscitation Status Routine Resus Stat 08/31/17 14:54 Ordered EKG 12 Lead [EK] Stat Ther 08/31/17 10:54 Ordered Medication Orders Ceftriaxone Sodium 2 gm/ (Sodium Chloride) 50 mls @ 100 mls/hr IV Q24H [facility] Sodium Chloride (Normal Saline) 1,000 mls @ 125 mls/hr IV ASDIRECTED [facility] Assessment/Plan Comment:: Assessment and plan - Urinary tract infection related to indwelling catheter - this likely explains the syncope. He has a history of 1 previous infection. He does not appear septic but is too weak for outpatient management at this time. -ceftriaxone -urine culture -IV fluids -PT eval Saturday -Continue chronic indwelling catheter Symptomatic BPH - continue finasteride Maintenance issues - - DVT prophylaxis - SCD's - GI prophylaxis - not indicated - Nutrition - regular diet - Quinones catheter - chronic indwelling CODE STATUS - DNR/DNI Admission justification - This patient will be admitted for inpatient services and is medically appropriate meeting medical necessity for inpatient admission as outlined in my documentation. I reasonably expect the patient will require inpatient services that span a period time over 2 midnights. I reasonably expect this patient to be discharged or transferred within 96 hours after admission to the [facility]. Disposition - anticipate d/c to home with home care vs [facility] after the hospital stay Primary care physician - Dr Geoff Novak M.D.
[2017-08-31] MEDS ORDERED: Acetaminophen 325 MG Tab PO PRN (15:56)
[2017-08-31] MEDS ORDERED: Ondansetron 4 MG Tab.DIS PO PRN (15:56)
[2017-08-31] MEDS: Sodium Chloride 0.9% 1,000 ML IV SCH (16:32)
[2017-08-31] MEDS: cefTRIAXone 2 GM in Sodium Chloride 0.9% 50 ML IV SCH (16:32)
[2017-08-31] MEDS ORDERED: FLU Vacc TS 2017-18 (65yr UP)/PF 180 MCG/0.5 ML Syringe IM ONE (17:15)
[2017-08-31] MEDS: atorvaSTATin 10 MG Tab PO SCH (20:40)
[2017-09-01] MEDS: Sodium Chloride 0.9% 1,000 ML IV SCH ×2 (00:55→08:30)
[2017-09-01] MEDS: Finasteride 5 MG Tab PO SCH (08:31)
--- NOTE | 2017-09-01 12:09 | PCM.PN ---
- General Info Date of Service: 09/01/17 Functional Status: Reports: Pain Controlled, Tolerating Diet - Review of Systems General: Reports: Weakness Gastrointestinal: Denies: Abdominal Pain Systems Review Comment:: No acute events overnight. No complaints of chest pain or shortness of breath. Appetite has been okay. Energy is close to baseline. He still feels weak and requires assistance to get from the bed to the chair. No fevers. Urine culture is growing a gram negative rods. - Patient Data Vitals - Most Recent: Last Vital Signs Temp 36.6 C 09/01/17 10:59 Pulse 78 09/01/17 10:59 Resp 18 09/01/17 10:59 BP 134/67 09/01/17 10:59 Pulse Ox 97 09/01/17 10:59 Weight - Most Recent: 68.039 kg I&O - Last 24 Hours: Intake & Output 08/31/17 09/01/17 09/01/17 22:59 06:59 14:59 Intake Total 120 1433 480 Output Total 450 775 Balance -330 658 480 Lab Results Last 24 Hours: Laboratory Results - last 24 hr 09/01/17 09/01/17 Range/Units 04:48 04:48 WBC 9.1 (4.5-11.0) K/uL RBC 3.17 L (4.30-5.90) M/uL Hgb 10.3 L (12.0-15.0) g/dL Hct 31.9 L (40.0-54.0) % MCV 101 H (80-98) fL MCH 33 H (27-31) pg MCHC 32 (32-36) % Plt Count 219 (150-400) K/uL Sodium 141 (140-148) mmol/L Potassium 4.3 (3.6-5.2) mmol/L Chloride 109 H (100-108) mmol/L Carbon Dioxide 28 (21-32) mmol/L Anion Gap 8.3 (5.0-14.0) mmol/L BUN 21 H (7-18) mg/dL Creatinine 0.9 (0.8-1.3) mg/dL Est Cr Clr Drug Dosing 54.60 mL/min Estimated GFR (MDRD) > 60 (>60) Glucose 85 (74-106) mg/dL Calcium 7.8 L (8.5-10.1) mg/dL Med Orders - Current: Current Medications Acetaminophen (Tylenol) 650 mg PO Q4H PRN PRN Reason: Pain (Mild 1-3)/fever Atorvastatin Calcium (Lipitor) 10 mg PO BEDTIME [facility] Last Admin: 08/31/17 20:40 Dose: 10 mg Finasteride (Proscar) 5 mg PO DAILY [facility] Last Admin: 09/01/17 08:31 Dose: 5 mg Ceftriaxone Sodium 2 gm/ (Sodium Chloride) 50 mls @ 100 mls/hr IV Q24H [facility] Last Admin: 08/31/17 16:32 Dose: 100 mls/hr Sodium Chloride (Normal Saline) 1,000 mls @ 125 mls/hr IV ASDIRECTED [facility] Last Admin: 09/01/17 08:30 Dose: 125 mls/hr Ondansetron HCl (Zofran Odt) 4 mg PO Q6H PRN PRN Reason: Nausea able to take PO Polyethylene Glycol (Miralax) 17 gm PO DAILY PRN PRN Reason: Constipation Senna/Docusate Sodium (Senna Plus) 1 tab PO BID PRN PRN Reason: Constipation - Exam Quality Assessment: No: Supplemental Oxygen General: Alert, Oriented, Cooperative, No Acute Distress Neck: Supple Lungs: Normal Respiratory Effort GI/Abdominal Exam: No Distention Extremities: No Pedal Edema Skin: Warm, Dry Psy/Mental Status: Alert, Normal Affect - Problem List & Annotations (1) UTI (urinary tract infection) due to urinary indwelling catheter SNOMED Code(s): 286354243 Code(s): T83.511A - I/I REACT D/T INDWELLING URETHRAL CATHETER, INIT; N39.0 - URINARY TRACT INFECTION, SITE NOT SPECIFIED Status: Acute Current Visit: Yes Qualifiers: Indwelling urinary catheter type: indwelling urethral catheter Encounter type: initial encounter Qualified Code(s): T83.511A - Infection and inflammatory reaction due to indwelling urethral catheter, initial encounter; N39.0 - Urinary tract infection, site not specified; N39.0 - Urinary tract infection, site not specified (2) Syncope SNOMED Code(s): 624991598 Code(s): R55 - SYNCOPE AND COLLAPSE Status: Acute Current Visit: No Qualifiers: Syncope type: vasovagal syncope Qualified Code(s): R55 - Syncope and collapse - Problem List Review Problem List Initiated/Reviewed/Updated: Yes - My Orders Last 24 Hours: My Active Orders 08/31/17 14:54 Resuscitation Status Routine 08/31/17 15:56 Patient Status [ADT] Routine Notify Provider Vital Signs [RC] ASDIRECTED Oxygen Therapy [RC] PRN Up With Assistance [RC] ASDIRECTED VTE/DVT Education [RC] Per Unit Routine Vital Signs [RC] Q4H Acetaminophen [Tylenol] 650 mg PO Q4H PRN Docusate Sodium/Sennosides [Senna Plus] 1 tab PO BID PRN Ondansetron [Zofran ODT] 4 mg PO Q6H PRN Polyethylene Glycol 3350 [MiraLAX] 17 gm PO DAILY PRN Sequential Compression Device [OM.PC] Per Unit Routine 08/31/17 Dinner Regular Diet [DIET] 09/01/17 12:08 Convert IV to Saline Lock [OM.PC] Routine 09/01/17 14:00 FLU Vacc [id number](65YR UP)/PF [Fluzone High-Dose ] 180 mcg IM .ONCE ONE 09/02/17 07:00 PT Evaluation and Treatment [CONS] Routine - Plan Plan:: Assessment and plan - Urinary tract infection related to indwelling catheter - this likely explains the syncope. No recurrence of syncope. No evidence for sepsis. -ceftriaxone -urine culture -Saline lock IV fluids -PT eval Saturday -Continue chronic indwelling catheter Symptomatic BPH - continue finasteride Maintenance issues - - DVT prophylaxis - SCD's - GI prophylaxis - not indicated - Nutrition - regular diet - Quinones catheter - chronic indwelling Disposition - anticipate d/c to home with home care [facility] after the hospital stay Primary care physician - Dr Geoff Novak M.D.
[2017-09-01] MEDS ORDERED: FLU Vacc TS 2017-18 (65yr UP)/PF 180 MCG/0.5 ML Syringe IM ONE (14:00)
[2017-09-01] MEDS: cefTRIAXone 2 GM in Sodium Chloride 0.9% 50 ML IV SCH (14:46)
[2017-09-01] MEDS: atorvaSTATin 10 MG Tab PO SCH (22:49)
[2017-09-02] MEDS: Finasteride 5 MG Tab PO SCH (09:27)
--- NOTE | 2017-09-02 12:57 | PCM.PN ---
- General Info Date of Service: 09/02/17 Functional Status: Reports: Tolerating Diet, Ambulating - Review of Systems General: Reports: Weakness. Denies: Fever, Chills Pulmonary: Reports: No Symptoms Cardiovascular: Reports: No Symptoms Gastrointestinal: Reports: No Symptoms Systems Review Comment:: Mr. Shepherd has been stable since yesterday, vital signs are within desired range and he has remained afebrile. Remains very weak, difficulty with ambulation and transfers. History of several recent falls at home. - Patient Data Vitals - Most Recent: Last Vital Signs Temp 99.1 F 09/02/17 11:24 Pulse 61 09/02/17 11:24 Resp 18 09/02/17 11:24 BP 102/50 L 09/02/17 11:24 Pulse Ox 96 09/02/17 11:24 Weight - Most Recent: 145 lb 0.004 oz I&O - Last 24 Hours: Intake & Output 09/01/17 09/02/17 09/02/17 22:59 06:59 14:59 Intake Total 240 560 Output Total 350 1100 800 Balance -110 -1100 -240 Med Orders - Current: Current Medications Acetaminophen (Tylenol) 650 mg PO Q4H PRN PRN Reason: Pain (Mild 1-3)/fever Atorvastatin Calcium (Lipitor) 10 mg PO BEDTIME [facility] Last Admin: 09/01/17 22:49 Dose: 10 mg Finasteride (Proscar) 5 mg PO DAILY [facility] Last Admin: 09/02/17 09:27 Dose: 5 mg Ceftriaxone Sodium 2 gm/ (Sodium Chloride) 50 mls @ 100 mls/hr IV Q24H [facility] Last Admin: 09/01/17 14:46 Dose: 100 mls/hr Ondansetron HCl (Zofran Odt) 4 mg PO Q6H PRN PRN Reason: Nausea able to take PO Polyethylene Glycol (Miralax) 17 gm PO DAILY PRN PRN Reason: Constipation Senna/Docusate Sodium (Senna Plus) 1 tab PO BID PRN PRN Reason: Constipation Discontinued Medications Sodium Chloride (Normal Saline) 1,000 mls @ 125 mls/hr IV ASDIRECTED [facility] Last Admin: 09/01/17 08:30 Dose: 125 mls/hr - Exam Quality Assessment: Urine Catheter, DVT Prophylaxis General: Alert, Oriented, Cooperative, No Acute Distress Lungs: Clear to Auscultation, Normal Respiratory Effort Cardiovascular: Regular Rate, Regular Rhythm, No Murmurs GI/Abdominal Exam: Normal Bowel Sounds, Soft, Non-Tender, No Distention Extremities: No Pedal Edema Skin: Warm, Dry, Intact - Problem List Review Problem List Initiated/Reviewed/Updated: Yes - Plan Plan:: Assessment and plan - Urinary tract infection related to indwelling catheter - this likely explains the syncope. No recurrence of syncope. No evidence for sepsis. -ceftriaxone -urine culture -Saline lock -PT eval Saturday -Continue chronic indwelling catheter Symptomatic BPH - continue finasteride Maintenance issues - - DVT prophylaxis - SCD's - GI prophylaxis - not indicated - Nutrition - regular diet - Quinones catheter - chronic indwelling Disposition - anticipate d/c to longterm in a.m. for restorative physical therapy and occupational therapy Primary care physician - Dr Tellez
[2017-09-02] MEDS: cefTRIAXone 2 GM in Sodium Chloride 0.9% 50 ML IV SCH (15:58)
[2017-09-02] MEDS: Polyethylene Glycol 3350 Powder 17 GM Packet PO PRN (18:42)
[2017-09-02] MEDS: atorvaSTATin 10 MG Tab PO SCH (21:27)
[2017-09-03] MEDS: Finasteride 5 MG Tab PO SCH (10:28)
[2017-09-03] MEDS: Polyethylene Glycol 3350 Powder 17 GM Packet PO PRN (10:49)
--- NOTE | 2017-09-03 11:56 | PCM.DCSUM1 ---
Discharge Summary - Hospital Course Brief History: Mr. Shepherd is an 86-year-old gentleman who was admitted following a syncopal episode likely secondary to underlying urinary tract infection. - Discharge Data Discharge Date: 09/03/17 Discharge Disposition: Home, W Home Health Agency 06 Condition: Fair - Discharge Diagnosis/Problem(s) (1) UTI (urinary tract infection) due to urinary indwelling catheter SNOMED Code(s): 523576650 ICD Code: T83.511A - I/I REACT D/T INDWELLING URETHRAL CATHETER, INIT; N39.0 - URINARY TRACT INFECTION, SITE NOT SPECIFIED Status: Acute Current Visit: Yes Qualifiers: Indwelling urinary catheter type: indwelling urethral catheter Encounter type: initial encounter Qualified Code(s): T83.511A - Infection and inflammatory reaction due to indwelling urethral catheter, initial encounter; N39.0 - Urinary tract infection, site not specified; N39.0 - Urinary tract infection, site not specified (2) Chronic renal insufficiency SNOMED Code(s): 554537249 ICD Code: N18.9 - CHRONIC KIDNEY DISEASE, UNSPECIFIED Status: Chronic Current Visit: No - Patient Summary/Data Consults: Consultations 09/02/17 07:00 PT Evaluation and Treatment [CONS] Routine Please Evaluate and Treat. PT Reason for Consult: Strengthening This query below is only for informational purposes and is not editable. Hospital Course: Mr. Shepherd is an 86-year-old gentleman who experienced a syncopal episode on the day of admission. He was brought into the emergency department for further evaluation and on assessment was found to have a urinary tract infection. He has history of BPH with bladder outlet obstruction and does have a indwelling Quinones catheter. Was felt likely that the syncopal episode likely been precipitated by the urinary tract infection. On initial evaluation he was found to have no significant cardiac dysrhythmias or hypotension. Urine culture was obtained and he was admitted to the hospital on IV antibiotic therapy with ceftriaxone as well as IV fluids for hydration. He improved significantly during his hospital stay and had no further evidence of active infection at the time of discharge. [facility] and occupational therapy and will be on an additional 4 days of antibiotic therapy with ciprofloxacin. He does have known Parkinson's disease and by history had become progressively more weak at home with several recent falls. Heart rhythm monitoring and blood pressure monitoring during the hospital stay showed no significant instability or significant rhythm abnormalities. Activity will be as tolerated and he will be on a regular diet. [facility]. - Patient Instructions Diet: Usual Diet as Tolerated - Discharge Plan Prescriptions/Med Rec: Ciprofloxacin HCl [Cipro] 500 mg PO BID #6 tablet Home Medications: Home Meds atorvaSTATin [Lipitor] 10 mg PO BEDTIME 04/25/15 [History] Finasteride 1 tab PO DAILY 06/29/17 [History] Ciprofloxacin HCl [Cipro] 500 mg PO BID #6 tablet 09/03/17 [Rx] Referrals: Enrique Tellez MD [Primary Care Provider] - - Patient Data Vitals - Most Recent: Last Vital Signs Temp 98.8 F 09/03/17 07:25 Pulse 63 09/03/17 07:25 Resp 14 09/03/17 07:25 BP 118/63 09/03/17 07:25 Pulse Ox 96 09/03/17 07:25 Weight - Most Recent: 145 lb 0.004 oz I&O - Last 24 hours: Intake & Output 09/02/17 09/03/17 09/03/17 22:59 06:59 14:59 Intake Total 490 500 360 Output Total 1150 1100 Balance -660 -600 360 Med Orders - Current: Current Medications Acetaminophen (Tylenol) 650 mg PO Q4H PRN PRN Reason: Pain (Mild 1-3)/fever Atorvastatin Calcium (Lipitor) 10 mg PO BEDTIME [facility] Last Admin: 09/02/17 21:27 Dose: 10 mg Finasteride (Proscar) 5 mg PO DAILY [facility] Last Admin: 09/03/17 10:28 Dose: 5 mg Ceftriaxone Sodium 2 gm/ (Sodium Chloride) 50 mls @ 100 mls/hr IV Q24H [facility] Ondansetron HCl (Zofran Odt) 4 mg PO Q6H PRN PRN Reason: Nausea able to take PO Polyethylene Glycol (Miralax) 17 gm PO DAILY PRN PRN Reason: Constipation Last Admin: 09/03/17 10:49 Dose: 17 gm Senna/Docusate Sodium (Senna Plus) 1 tab PO BID PRN PRN Reason: Constipation Last Admin: 09/03/17 10:50 Dose: 1 tab Discontinued Medications Ceftriaxone Sodium 2 gm/ (Sodium Chloride) 50 mls @ 100 mls/hr IV Q24H [facility] Last Admin: 09/02/17 15:58 Dose: 100 mls/hr Sodium Chloride (Normal Saline) 1,000 mls @ 125 mls/hr IV ASDIRECTED [facility] Last Admin: 09/01/17 08:30 Dose: 125 mls/hr *Q Meaningful Use (DIS) - VTE *Q VTE Criteria *Q: - Stroke *Q Stroke Criteria *Q: - AMI *Q AMI Criteria *Q:
[2017-09-03] MEDS ORDERED: cefTRIAXone 2 GM in Sodium Chloride 0.9% 50 ML IV SCH (12:00)
[2017-09-03 12:23] VITALS: BP 106/48
== END 2017-09-03 13:35 | DRG 699 ==
LOC: JP.ED 10:00 → JP.MS 14:53
PROVIDERS: ADMIT Internal Medicine; ATTEND Hospitalist
DX: T83.511A Infection and inflammatory reaction due to indwelling urethral catheter, initial encounter (principal); N13.8 Other obstructive and reflux uropathy; N39.0 Urinary tract infection, site not specified; B96.89 Other specified bacterial agents as the cause of diseases classified elsewhere; Z66 Do not resuscitate; G20 Parkinson's disease; N18.9 Chronic kidney disease, unspecified; R29.6 Repeated falls; Z91.81 History of falling; N40.1 Benign prostatic hyperplasia with lower urinary tract symptoms; E78.00 Pure hypercholesterolemia, unspecified; M19.90 Unspecified osteoarthritis, unspecified site; Z85.828 Personal history of other malignant neoplasm of skin; H91.90 Unspecified hearing loss, unspecified ear; R55 Syncope and collapse; R53.1 Weakness; Z23 Encounter for immunization
CPT/HCPCS: 36415; 80048; 81001; 85025; 85027; 87086; 87088; 87186; 90662; 93005; 93010; 96361; 96374; 97110-GP; 97162-GP; 99284; 99285-25; A9270-GY; G0008; J0696; J7040; J7050

== ENCOUNTER 2017-10-14 09:50 | Inpatient (IN) | payer MEDICARE, OTHER ==
[2017-10-14] MEDS ORDERED: Sodium Chloride 0.9% 1,000 ML IV SCH ×2 (10:15→11:15)
[2017-10-14] MEDS ORDERED: Levofloxacin/Dextrose 5%-Water 250 MG in Premix Bag 1 BAG IV ONE ×2 (11:04→11:30)
--- NOTE | 2017-10-14 11:07 | EDM.PDOC ---
ED HPI GENERAL MEDICAL PROBLEM - General Chief Complaint: Genitourinary Problem Stated Complaint: MEDICAL VIA [place] Time Seen by Provider: 10/14/17 10:10 Source of Information: Reports: Patient, EMS Notes Reviewed, Prison Records History Limitations: Reports: No Limitations - History of Present Illness INITIAL COMMENTS - FREE TEXT/NARRATIVE: pt has a knon Uti. He was started on cipro yesterday and he did have his dose today. He is more confused today/ Onset: Gradual, Other (pt was treated for a UTI yesterday. ) Duration: Day(s): Location: Reports: Generalized Associated Symptoms: Reports: Confusion (bp was low and his o2 sats were low when the ambulance arrived. ), Fever/Chills, Other - Related Data Allergies Allergy/AdvReac Type Severity Reaction Status Date / Time No Known Allergies Allergy Verified 10/14/17 10:44 Home Meds: Home Meds Ciprofloxacin HCl [Cipro] 500 mg PO BID #6 tablet 09/03/17 [Rx] Acetaminophen [Tylenol] 650 mg PO Q4H PRN 10/14/17 [History] Bisacodyl [Dulcolax] 1 supp RECTAL Q72H 10/14/17 [History] Carbidopa/Levodopa [Sinemet 25-100 mg Tablet] 1 tab PO TID 10/14/17 [History] Docusate Sodium 200 mg PO ACBREAKFASTANDBED 10/14/17 [History] Glycopyrrolate [Robinul] 1 mg PO TID 10/14/17 [History] Magnesium Hydroxide [Milk of Magnesia] 30 ml PO Q48H 10/14/17 [History] Past Medical History HEENT History: Reports: Hard of Hearing Other HEENT History: cancer rt. ear Cardiovascular History: Reports: Heart Murmur, High Cholesterol Genitourinary History: Reports: BPH, Retention, Urinary Musculoskeletal History: Reports: Arthritis Other Oncologic History: rt ear Other Dermatologic History: rt ear cancer - Infectious Disease History Infectious Disease History: Reports: Other (See Below) Other Infectious Disease History: unknown - Past Surgical History GI Surgical History: Reports: Appendectomy, Colonoscopy Social & Family History - Family History Family Medical History: Unobtainable - Tobacco Use Smoking Status *Q: Unknown Ever Smoked Second Hand Smoke Exposure: No - Caffeine Use Caffeine Use: Reports: Coffee - Alcohol Use Days Per Week of Alcohol Use: 0 - Recreational Drug Use Recreational Drug Use: No ED ROS GENERAL - Review of Systems Review Of Systems: See Below Constitutional: Reports: Chills, Weakness, Other (increased confusion) HEENT: Reports: No Symptoms Respiratory: Reports: No Symptoms Cardiovascular: Reports: Other (pt has had some irregularities) Endocrine: Reports: No Symptoms GI/Abdominal: Reports: No Symptoms : Reports: Other (pt has an indewelling cath. Which looks like it needs to be changed. ) Musculoskeletal: Reports: No Symptoms Skin: Reports: No Symptoms Neurological: Reports: No Symptoms Psychiatric: Reports: Confusion ED EXAM, RENAL/ - Physical Exam Exam: See Below Text/Narrative:: pt was started on cipro yesterday for a UTI. He was more confused today and his bp was low and his o2 sats are low. He was started on fluids in the ambulance. Exam Limited By: No Limitations General Appearance: Alert, Other (pt is confused. ) Ears: Normal TMs Nose: Normal Inspection Throat/Mouth: Normal Inspection Head: Atraumatic Neck: Normal Inspection Respiratory/Chest: No Respiratory Distress Cardiovascular: Regular Rate, Rhythm GI/Abdominal: Other ( He is having some ectopics and he is having episodes of barycardia. ) (Male) Exam: Deferred Rectal (Males) Exam: Other (pt has a rashid that looks like it needs to be changed. ) Neurological: Alert, Confused Psychiatric: Other (pt is confused. ) Course - Vital Signs Last Recorded V/S: Last Vital Signs Temp 35.3 C 10/15/17 19:00 Pulse 87 10/15/17 19:00 Resp 18 10/15/17 19:00 BP 106/55 L 10/15/17 19:00 Pulse Ox 94 L 10/15/17 19:00 - Orders/Labs/Meds Orders: Medication Orders Acetaminophen (Tylenol) 650 mg PO Q4H PRN PRN Reason: Pain Carbidopa/Levodopa (Sinemet 25-100 Mg) 1 tab PO TID [facility] Last Admin: 10/15/17 21:01 Dose: 1 tab Admin: 10/15/17 14:53 Dose: 1 tab Admin: 10/15/17 09:57 Dose: 1 tab Admin: 10/14/17 20:03 Dose: 1 tab Admin: 10/14/17 15:39 Dose: 1 tab Docusate Sodium (Colace) 200 mg PO ACBREAKFASTANDBED [facility] Last Admin: 10/15/17 21:00 Dose: 200 mg Admin: 10/15/17 07:51 Dose: 200 mg Admin: 10/14/17 20:03 Dose: 200 mg Enoxaparin Sodium (Lovenox) 40 mg SUBCUT DAILY [facility] Last Admin: 10/15/17 09:57 Dose: 40 mg Ceftazidime 1 gm/ Sodium (Chloride) 50 mls @ 100 mls/hr IV Q8H [facility] Last Admin: 10/15/17 22:04 Dose: 100 mls/hr Admin: 10/15/17 14:53 Dose: 100 mls/hr Admin: 10/15/17 06:12 Dose: 100 mls/hr Admin: 10/14/17 21:33 Dose: 100 mls/hr Admin: 10/14/17 13:42 Dose: 100 mls/hr Levofloxacin/Dextrose 750 mg/ (Premix) 150 mls @ 100 mls/hr IV Q24H [facility] Last Admin: 10/15/17 09:57 Dose: 100 mls/hr Ondansetron HCl (Zofran Odt) 4 mg PO Q6H PRN PRN Reason: Nausea able to take PO Ondansetron HCl (Zofran) 4 mg IV Q6H PRN PRN Reason: Nausea/Vomiting Polyethylene Glycol (Miralax) 17 gm PO DAILY PRN PRN Reason: Constipation Labs: Laboratory Tests 10/14/17 10/14/17 10/14/17 Range/Units 10:10 10:10 10:10 WBC 13.9 H (4.5-11.0) K/uL RBC 3.34 L (4.30-5.90) M/uL Hgb 10.3 L (12.0-15.0) g/dL Hct 32.8 L (40.0-54.0) % MCV 98 (80-98) fL MCH 31 (27-31) pg MCHC 31 L (32-36) % Plt Count 327 (150-400) K/uL Neut % (Auto) 89 H (36-66) % Lymph % (Auto) 6 L (24-44) % [place] % (Auto) 5 (2-6) % Eos % (Auto) 0 L (2-4) % Baso % (Auto) 0 (0-1) % Sodium 142 (140-148) mmol/L Potassium 3.7 (3.6-5.2) mmol/L Chloride 106 (100-108) mmol/L Carbon Dioxide 27 (21-32) mmol/L Anion Gap 8.6 (5.0-14.0) mmol/L BUN 34 H (7-18) mg/dL Creatinine 1.0 (0.8-1.3) mg/dL Est Cr Clr Drug Dosing 46.85 mL/min Estimated GFR (MDRD) > 60 (>60) Glucose 110 H (74-106) mg/dL Lactic Acid 2.5 H (0.4-2.0) mmol/L Calcium 8.1 L (8.5-10.1) mg/dL Total Bilirubin 0.7 (0.2-1.0) mg/dL AST 31 (15-37) U/L ALT 7 L (12-78) U/L Alkaline Phosphatase 55 (46-116) U/L Total Protein 6.2 L (6.4-8.2) g/dL Albumin 2.0 L (3.4-5.0) g/dL Globulin 4.2 H (2.3-3.5) g/dL Albumin/Globulin Ratio 0.5 L (1.2-2.2) Meds: Medications Generic Name Dose Route Start Last Admin Trade Name Freq PRN Reason Stop Dose Admin Acetaminophen 650 mg 10/14/17 13:05 Tylenol PO Q4H PRN Pain Carbidopa/Levodopa 1 tab 10/14/17 14:00 10/15/17 21:01 Sinemet 25-100 Mg PO 1 tab TID LORI Administration Docusate Sodium 200 mg 10/14/17 21:00 10/15/17 21:00 Colace PO 200 mg ACBREAKFASTANDBED LORI Administration Enoxaparin Sodium 40 mg 10/15/17 09:00 10/15/17 09:57 Lovenox SUBCUT 40 mg DAILY LORI Administration Ceftazidime 1 gm/ Sodium 50 mls @ 100 mls/hr 10/14/17 14:00 10/15/17 22:04 Chloride IV 100 mls/hr Q8H LORI Administration Levofloxacin/Dextrose 750 mg/ 150 mls @ 100 mls/hr 10/15/17 09:00 11/14/17 09 :57 Premix IV 100 mls/hr Q24H LORI Administration Ondansetron HCl 4 mg 10/14/17 13:05 Zofran Odt PO Q6H PRN Nausea able to take PO Ondansetron HCl 4 mg 10/14/17 13:05 Zofran IV Q6H PRN Nausea/Vomiting Polyethylene Glycol 17 gm 10/14/17 13:05 Miralax PO DAILY PRN Constipation Discontinued Medications Generic Name Dose Route Start Last Admin Trade Name Freq PRN Reason Stop Dose Admin Sodium Chloride 1,000 mls @ 999 mls/hr 10/14/17 10:15 10/14/17 10:13 Normal Saline IV 999 mls/hr ASDIRECTED LORI Administration Sodium Chloride 1,000 mls @ 300 mls/hr 10/14/17 11:15 10/14/17 11:28 Normal Saline IV 300 mls/hr ASDIRECTED LORI Administration Levofloxacin/Dextrose 250 mg/ 50 mls @ 50 mls/hr 10/14/17 11:30 10/14/17 11: 29 Premix IV 10/14/17 12:29 50 mls/hr ONETIME ONE Administration Sodium Chloride 1,000 mls @ 125 mls/hr 10/14/17 13:05 10/15/17 10:12 Normal Saline IV 125 mls/hr ASDIRECTED LORI Administration - Re-Assessments/Exams Free Text/Narrative Re-Assessment/Exam: 10/14/17 11:46 pt was given a liter of fluid and a second is hanging. He had oral cipro 500mg this am. He was given levoquin 250 iv. He has a mild elevation in his wbc. His lactic acid is borderline. Departure - Departure Time of Disposition: 11:48 Disposition: Admitted As Inpatient 64 Condition: Fair Clinical Impression: Sepsis, UTI (urinary tract infection), Dehydration - Discharge Information
--- NOTE | 2017-10-14 12:10 | PCM.HP ---
H&P History of Present Illness - General Date of Service: 10/14/17 Admit Problem/Dx: Admission Diagnosis/Problem Admission Diagnosis/Problem Acute cystitis Source of Information: Patient, Provider History Limitations: Reports: Altered Mental Status (some confusion) - History of Present Illness Initial Comments - Free Text/Narative: Roland presents to the emergency room by ambulance with decreased level of consciousness. He is a little confused and history is somewhat difficult to gather. He lives at a [facility] and was diagnosed with a urinary tract infection yesterday. He was started on ciprofloxacin but despite antibiotics has worsened. This morning he was noted to have a low-grade temperature elevation as well as confusion, weakness, hypotension and hypoxia. He was sent to the emergency room for evaluation. He is able to tell me that he feels weak and tired and he does not endorse feeling short of breath and does not endorse abdominal pain or chest pain. Does admit that he has not been eating very well the past couple of days but thinks prior to that he was eating okay. He does not recall any fevers. Thinks maybe he's been sleeping more than usual. He is not sure if he was diagnosed with a UTI and started on antibiotics or not. Workup in the emergency room revealed a low-normal blood pressure and some confusion as well as a mildly elevated lactic acid level. Other laboratory studies are stable including kidney function and hemoglobin. He has not required supplemental oxygen while he's been in the emergency room. Urine sample suggestive of infection and urine culture from yesterday is growing a gram-negative stacey. He will be admitted for further management. - Related Data Allergies/Adverse Reactions: Allergies Allergy/AdvReac Type Severity Reaction Status Date / Time No Known Allergies Allergy Verified 10/14/17 10:44 Home Medications: Home Meds Ciprofloxacin HCl [Cipro] 500 mg PO BID #6 tablet 09/03/17 [Rx] Acetaminophen [Tylenol] 650 mg PO Q4H PRN 10/14/17 [History] Bisacodyl [Dulcolax] 1 supp RECTAL Q72H 10/14/17 [History] Carbidopa/Levodopa [Sinemet 25-100 mg Tablet] 1 tab PO TID 10/14/17 [History] Docusate Sodium 200 mg PO ACBREAKFASTANDBED 10/14/17 [History] Glycopyrrolate [Robinul] 1 mg PO TID 10/14/17 [History] Magnesium Hydroxide [Milk of Magnesia] 30 ml PO Q48H 10/14/17 [History] Past Medical History HEENT History: Reports: Hard of Hearing Other HEENT History: cancer rt. ear Cardiovascular History: Reports: Heart Murmur, High Cholesterol Genitourinary History: Reports: BPH, Retention, Urinary Musculoskeletal History: Reports: Arthritis Other Oncologic History: rt ear Other Dermatologic History: rt ear cancer - Infectious Disease History Infectious Disease History: Reports: Other (See Below) Other Infectious Disease History: unknown - Past Surgical History GI Surgical History: Reports: Appendectomy, Colonoscopy Social & Family History - Family History Family Medical History: Unobtainable - Tobacco Use Smoking Status *Q: Unknown Ever Smoked Second Hand Smoke Exposure: No - Caffeine Use Caffeine Use: Reports: Coffee - Alcohol Use Days Per Week of Alcohol Use: 0 - Recreational Drug Use Recreational Drug Use: No H&P Review of Systems - Review of Systems: Review Of Systems: See Below Free Text/Narrative: A complete 12 point review of systems was obtained with most questions being answered though I'm suspicious he is too confused to provide reliable answers. Pertinent positives and negatives are noted in the history of present illness. All other systems were reviewed and were negative except as noted. Exam - Exam Exam: See Below - Vital Signs Vital Signs: Last Vital Signs Temp 36.9 C 10/14/17 11:33 Pulse 80 10/14/17 11:57 Resp 14 10/14/17 11:33 BP 104/53 L 10/14/17 11:33 Pulse Ox 92 L 10/14/17 11:33 Weight: 64.864 kg - Exam Quality Assessment: No: Supplemental Oxygen General: Alert, Cooperative, Lethargic. No: Oriented, Mild Distress HEENT: Conjunctiva Clear. No: Mucosa Moist & [place] (dry), Scleral Icterus Neck: Supple, Trachea Midline. No: Lymphadenopathy Lungs: Normal Respiratory Effort, Crackles (rare both bases) Cardiovascular: Regular Rate, Regular Rhythm, Systolic Murmur GI/Abdominal Exam: Normal Bowel Sounds, Soft, Non-Tender, No Distention, No Mass Extremities: No Pedal Edema, Other (ulceration right lateral ankle). No: Increased Warmth Peripheral Pulses: 1+: Dorsalis Pedis (L), Dorsalis Pedis (R) Skin: Warm, Dry. No: Rash Neurological: Normal Speech. No: Normal Tone Neuro Extensive - Mental Status: Alert, Slow Response to Commands Neuro Extensive - Motor, Sensory, Reflexes: CN II-XII Intact, Abnormal Motor, Tremor. No: Dysarthria Psychiatric: Alert, Normal Affect - Patient Data Lab Results Last 24 hrs: Laboratory Results - last 24 hr 10/14/17 10/14/17 10/14/17 Range/Units 10:10 10:10 10:10 WBC 13.9 H (4.5-11.0) K/uL RBC 3.34 L (4.30-5.90) M/uL Hgb 10.3 L (12.0-15.0) g/dL Hct 32.8 L (40.0-54.0) % MCV 98 (80-98) fL MCH 31 (27-31) pg MCHC 31 L (32-36) % Plt Count 327 (150-400) K/uL Neut % (Auto) 89 H (36-66) % Lymph % (Auto) 6 L (24-44) % [place] % (Auto) 5 (2-6) % Eos % (Auto) 0 L (2-4) % Baso % (Auto) 0 (0-1) % Sodium 142 (140-148) mmol/L Potassium 3.7 (3.6-5.2) mmol/L Chloride 106 (100-108) mmol/L Carbon Dioxide 27 (21-32) mmol/L Anion Gap 8.6 (5.0-14.0) mmol/L BUN 34 H (7-18) mg/dL Creatinine 1.0 (0.8-1.3) mg/dL Est Cr Clr Drug Dosing 46.85 mL/min Estimated GFR (MDRD) > 60 (>60) Glucose 110 H (74-106) mg/dL Lactic Acid 2.5 H (0.4-2.0) mmol/L Calcium 8.1 L (8.5-10.1) mg/dL Total Bilirubin 0.7 (0.2-1.0) mg/dL AST 31 (15-37) U/L ALT 7 L (12-78) U/L Alkaline Phosphatase 55 (46-116) U/L Total Protein 6.2 L (6.4-8.2) g/dL Albumin 2.0 L (3.4-5.0) g/dL Globulin 4.2 H (2.3-3.5) g/dL Albumin/Globulin Ratio 0.5 L (1.2-2.2) Result Diagrams: 10/14/17 10:10 10/14/17 10:10 Imaging Impressions Last 24 hrs: CXR - images personally reviewed - new patchy left lung infiltrate concerning for pneumonia. No effusions or masses. This chest x-ray was compared to the one from June of this year. *Q Meaningful Use (ADM) - VTE *Q VTE Criteria *Q: - VTE Risk Assess *Q Each Risk Factor Represents 1 Point: None Total Score 1 Point Risk Factors: 0 Each Risk Factor Represents 2 Points: None Total Score 2 Point Risk Factors: 0 Each Risk Factor Represents 3 Points: Age 75 Years or Greater Total Score 3 Point Risk Factors: 3 Each Risk Factor Represents 5 Points: None Total Score 5 Point Risk Factors: 0 Venous Thromboembolism Risk Factor Score *Q: 3 - Stroke *Q Stroke Criteria *Q: - AMI *Q AMI Criteria *Q: - Problem List (1) UTI (urinary tract infection) due to urinary indwelling catheter SNOMED Code(s): 528903091 ICD Code: T83.511A - I/I REACT D/T INDWELLING URETHRAL CATHETER, INIT; N39.0 - URINARY TRACT INFECTION, SITE NOT SPECIFIED Status: Acute Current Visit: No Qualifiers: Indwelling urinary catheter type: indwelling urethral catheter Encounter type: initial encounter Qualified Code(s): T83.511A - Infection and inflammatory reaction due to indwelling urethral catheter, initial encounter; N39.0 - Urinary tract infection, site not specified; N39.0 - Urinary tract infection, site not specified (2) Pressure ulcer, ankle SNOMED Code(s): 094407167 ICD Code: L89.509 - PRESSURE ULCER OF UNSPECIFIED ANKLE, UNSPECIFIED STAGE Status: Acute Current Visit: Yes (3) Parkinson's disease SNOMED Code(s): 17240327 ICD Code: G20 - PARKINSON'S DISEASE Status: Chronic Current Visit: Yes (4) Stage III chronic kidney disease SNOMED Code(s): 092566008 ICD Code: N18.3 - CHRONIC KIDNEY DISEASE, STAGE 3 (MODERATE) Status: Chronic Current Visit: Yes (5) Left lower lobe pneumonia SNOMED Code(s): 742964047 ICD Code: J18.1 - LOBAR PNEUMONIA, UNSPECIFIED ORGANISM Status: Acute Current Visit: Yes Qualifiers: Pneumonia type: due to unspecified organism Qualified Code(s): J18.1 - Lobar pneumonia, unspecified organism Problem List Initiated/Reviewed/Updated: Yes Orders Last 24hrs: Active Orders 24 hr Category Date Time Status Patient Status Manage Transfer [TRANSFER] Routine ADT 10/14/17 11:59 Ordered Chest 1V Frontal [CR] Stat Exams 10/14/17 11:49 Ordered CULTURE BLOOD [BC] Urgent Lab 10/14/17 10:10 Received CULTURE BLOOD [BC] Urgent Lab 10/14/17 10:15 Received Levofloxacin/Dextrose 5%-Water [Levaquin in D5W 250 MG/ Med 10/14/17 11:30 Active 50 ML] 250 mg Premix Bag 1 bag IV ONETIME Sodium Chloride 0.9% [Normal Saline] 1,000 ml Med 10/14/17 10:15 Active IV ASDIRECTED Sodium Chloride 0.9% [Normal Saline] 1,000 ml Med 10/14/17 11:15 Active IV ASDIRECTED Blood Culture x2 Reflex Set [OM.PC] Urgent Oth 10/14/17 10:05 Ordered Resuscitation Status Routine Resus Stat 10/14/17 12:01 Ordered Medication Orders Sodium Chloride (Normal Saline) 1,000 mls @ 999 mls/hr IV ASDIRECTED [facility] Last Admin: 10/14/17 10:13 Dose: 999 mls/hr Sodium Chloride (Normal Saline) 1,000 mls @ 300 mls/hr IV ASDIRECTED [facility] Last Admin: 10/14/17 11:28 Dose: 300 mls/hr Levofloxacin/Dextrose 250 mg/ (Premix) 50 mls @ 50 mls/hr IV ONETIME ONE Stop: 10/14/17 12:29 Last Admin: 10/14/17 11:29 Dose: 50 mls/hr Assessment/Plan Comment:: ASSESSMENT AND PLAN - Complicated urinary tract infection - urine sample suggestive of infection and culture from yesterday is growing a gram-negative stacey. Identification is pending. Previous urine cultures have grown out unusual organisms. He has received ciprofloxacin by mouth as well as an IV dose of levofloxacin in the emergency room. He has a chronic indwelling catheter. -Ceftazidime -Follow-up cultures -IV fluids Left lower lobe pneumonia - not much of a cough but he did have some crackles on the left side and chest x-ray suggested pneumonia. This could explain hypoxia this morning but he is not currently hypoxic. -ceftazidime -levofloxacin -Supplement oxygen if needed Parkinson's disease - stable at this time but fairly debilitating. -Continue home medications Stage III chronic kidney disease - Creatinine near baseline at this time. Maintenance issues - - DVT prophylaxis - enoxaparin - GI prophylaxis - not indicated - Nutrition - regular diet - Quinones catheter - chronic indwelling catheter secondary to BPH CODE STATUS - DNR/DNI Admission justification - This patient will be admitted for inpatient services and is medically appropriate meeting medical necessity for inpatient admission as outlined in my documentation. I reasonably expect the patient will require inpatient services that span a period time over 2 midnights. I reasonably expect this patient to be discharged or transferred within 96 hours after admission to the [facility]. Disposition - anticipate discharge back to the [facility] after the hospital stay Primary care physician - Dr Wilfrid Novak M.D.
--- NOTE | 2017-10-14 12:51 | CR ---
Chest 1V Frontal INDICATION: confused, low bp and low O2 sats. FINDINGS: Comparison 04/24/2015. Heart size remains prominent. New patchy infiltrate in the left lower lung medially, concerning for pneumonia. There may be minimal infiltrate in the right lower lung med ially. Osteopenia. Exam otherwise unremarkable.
[2017-10-14] MEDS ORDERED: Ondansetron 4 MG/2 ML SDV IV PRN (13:05)
[2017-10-14] MEDS ORDERED: Ondansetron 4 MG Tab.DIS PO PRN (13:05)
[2017-10-14] MEDS ORDERED: Polyethylene Glycol 3350 Powder 17 GM Packet PO PRN (13:05)
[2017-10-14] MEDS ORDERED: Acetaminophen 325 MG Tab PO PRN (13:05)
[2017-10-14] MEDS: cefTAZidime 1 GM in Sodium Chloride 0.9% 50 ML IV SCH ×2 (13:42→21:33)
[2017-10-14] MEDS: Carbidopa/Levodopa 25-100 MG Tab PO SCH ×2 (15:39→20:03)
[2017-10-14] MEDS: Sodium Chloride 0.9% 1,000 ML IV SCH (17:23)
[2017-10-14] MEDS: Docusate Sodium 100 MG Cap PO SCH (20:03)
[2017-10-15] MEDS: Sodium Chloride 0.9% 1,000 ML IV SCH ×2 (02:07→10:12)
[2017-10-15] MEDS: cefTAZidime 1 GM in Sodium Chloride 0.9% 50 ML IV SCH ×3 (06:12→22:04)
[2017-10-15] MEDS: Docusate Sodium 100 MG Cap PO SCH ×2 (07:51→21:00)
[2017-10-15] MEDS: Levofloxacin/Dextrose 5%-Water 750 MG in Premix Bag 1 BAG IV SCH (09:57)
[2017-10-15] MEDS: Carbidopa/Levodopa 25-100 MG Tab PO SCH ×3 (09:57→21:01)
[2017-10-15] MEDS: Enoxaparin 40 MG/0.4 ML Syringe SUBCUT SCH (09:57)
--- NOTE | 2017-10-15 10:55 | PCM.PN ---
- General Info Date of Service: 10/15/17 Subjective Update: Mr. Shepherd has improved modestly since admission, appetite remains somewhat poor and he has been very weak. There has been improvement in his white blood cell count and he has remained afebrile with stable vital signs. Nursing staff has noted some coughing with eating, raising the question of possible aspiration. - Review of Systems General: Reports: Weakness. Denies: Fever, Chills, Appetite Pulmonary: Reports: Cough. Denies: Shortness of Breath, Pleuritic Chest Pain, Sputum, Hemoptysis Cardiovascular: Denies: Chest Pain, Palpitations, Dyspnea on Exertion, Orthopnea , PND, Edema, Lightheadedness Gastrointestinal: Reports: Constipation, Decreased Appetite, Difficulty Swallowing. Denies: Abdominal Pain, Diarrhea, Flatus, Hematochezia, Melena, Nausea, Vomiting Genitourinary: Reports: Other (Indwelling Quinones catheter) - Patient Data Vitals - Most Recent: Last Vital Signs Temp 99.7 F 10/15/17 06:00 Pulse 90 10/15/17 06:00 Resp 26 H 10/15/17 06:00 BP 117/51 L 10/15/17 06:00 Pulse Ox 94 L 10/15/17 06:00 Weight - Most Recent: 143 lb I&O - Last 24 Hours: Intake & Output 10/14/17 10/15/17 10/15/17 22:59 06:59 14:59 Intake Total 110 2000 120 Output Total 500 600 Balance -390 1400 120 Lab Results Last 24 Hours: Laboratory Results - last 24 hr 10/14/17 10/15/17 10/15/17 Range/Units 16:24 05:00 05:00 WBC 11.5 H (4.5-11.0) K/uL RBC 3.05 L (4.30-5.90) M/uL Hgb 9.4 L (12.0-15.0) g/dL Hct 30.3 L (40.0-54.0) % MCV 99 H (80-98) fL MCH 31 (27-31) pg MCHC 31 L (32-36) % Plt Count 302 (150-400) K/uL Sodium 145 (140-148) mmol/L Potassium 4.1 (3.6-5.2) mmol/L Chloride 111 H (100-108) mmol/L Carbon Dioxide 26 (21-32) mmol/L Anion Gap 12.1 (5.0-14.0) mmol/L BUN 32 H (7-18) mg/dL Creatinine 0.9 (0.8-1.3) mg/dL Est Cr Clr Drug Dosing 52.05 mL/min Estimated GFR (MDRD) > 60 (>60) Glucose 85 (74-106) mg/dL Lactic Acid 1.4 (0.4-2.0) mmol/L Calcium 8.0 L (8.5-10.1) mg/dL Med Orders - Current: Current Medications Acetaminophen (Tylenol) 650 mg PO Q4H PRN PRN Reason: Pain Carbidopa/Levodopa (Sinemet 25-100 Mg) 1 tab PO TID [facility] Last Admin: 10/15/17 09:57 Dose: 1 tab Docusate Sodium (Colace) 200 mg PO ACBREAKFASTANDBED [facility] Last Admin: 10/15/17 07:51 Dose: 200 mg Enoxaparin Sodium (Lovenox) 40 mg SUBCUT DAILY [facility] Last Admin: 10/15/17 09:57 Dose: 40 mg Ceftazidime 1 gm/ Sodium (Chloride) 50 mls @ 100 mls/hr IV Q8H [facility] Last Admin: 10/15/17 06:12 Dose: 100 mls/hr Levofloxacin/Dextrose 750 mg/ (Premix) 150 mls @ 100 mls/hr IV Q24H [facility] Last Admin: 10/15/17 09:57 Dose: 100 mls/hr Ondansetron HCl (Zofran Odt) 4 mg PO Q6H PRN PRN Reason: Nausea able to take PO Ondansetron HCl (Zofran) 4 mg IV Q6H PRN PRN Reason: Nausea/Vomiting Polyethylene Glycol (Miralax) 17 gm PO DAILY PRN PRN Reason: Constipation Discontinued Medications Sodium Chloride (Normal Saline) 1,000 mls @ 999 mls/hr IV ASDIRECTED [facility] Last Admin: 10/14/17 10:13 Dose: 999 mls/hr Sodium Chloride (Normal Saline) 1,000 mls @ 300 mls/hr IV ASDIRECTED [facility] Last Admin: 10/14/17 11:28 Dose: 300 mls/hr Levofloxacin/Dextrose 250 mg/ (Premix) 50 mls @ 50 mls/hr IV ONETIME ONE Stop: 10/14/17 12:29 Last Admin: 10/14/17 11:29 Dose: 50 mls/hr Sodium Chloride (Normal Saline) 1,000 mls @ 125 mls/hr IV ASDIRECTED [facility] Last Admin: 10/15/17 10:12 Dose: 125 mls/hr - Exam Quality Assessment: Urine Catheter, DVT Prophylaxis General: Alert, Oriented, Cooperative, Mild Distress Lungs: Clear to Auscultation, Normal Respiratory Effort Cardiovascular: Regular Rate, Regular Rhythm, No Murmurs GI/Abdominal Exam: Normal Bowel Sounds, Soft, Non-Tender, No Organomegaly, No Distention Extremities: Non-Tender, No Pedal Edema Skin: Warm, Dry, Intact - Problem List Review Problem List Initiated/Reviewed/Updated: Yes - My Orders Last 24 Hours: My Active Orders 10/15/17 10:50 Consult to Speech Language Pathology [CAT SWAMPER Evaluation and Treatment] [CONS] Routine 10/15/17 10:51 Convert IV to Saline Lock [OM.PC] Routine 10/16/17 05:00 BASIC METABOLIC PANEL,BMP [CHEM] Timed CBC WITH AUTO DIFF [HEME] Timed - Plan Plan:: ASSESSMENT AND PLAN - Complicated urinary tract infection - urine sample suggestive of infection and culture from 2 days ago is growing a gram-negative stacey. Identification is pending. Previous urine cultures have grown out unusual organisms. He has received ciprofloxacin by mouth as well as an IV dose of levofloxacin since admission. He has a chronic indwelling catheter. -Ceftazidime -Follow-up cultures -IV fluids Left lower lobe pneumonia - not much of a cough but he did have some crackles on the left side and chest x-ray suggested pneumonia. Oxygenation has been stable since admission, torsion of possible aspiration with eating -Speech therapy consult to evaluate swallowing -ceftazidime -levofloxacin -Supplement oxygen if needed Parkinson's disease - stable at this time but fairly debilitating. -Continue home medications Stage III chronic kidney disease - Creatinine near baseline at this time. Maintenance issues - - DVT prophylaxis - enoxaparin - GI prophylaxis - not indicated - Nutrition - regular diet - Quinones catheter - chronic indwelling catheter secondary to BPH CODE STATUS - DNR/DNI Admission justification - This patient will be admitted for inpatient services and is medically appropriate meeting medical necessity for inpatient admission as outlined in my documentation. I reasonably expect the patient will require inpatient services that span a period time over 2 midnights. I reasonably expect this patient to be discharged or transferred within 96 hours after admission to the [facility]. Disposition - anticipate discharge back to the snf after the hospital stay Primary care physician - Dr Yuen
[2017-10-16] MEDS: cefTAZidime 1 GM in Sodium Chloride 0.9% 50 ML IV SCH ×3 (05:38→21:05)
[2017-10-16] MEDS: Docusate Sodium 100 MG Cap PO SCH ×2 (08:01→20:51)
[2017-10-16] MEDS: Levofloxacin/Dextrose 5%-Water 750 MG in Premix Bag 1 BAG IV SCH (08:02)
[2017-10-16] MEDS: Carbidopa/Levodopa 25-100 MG Tab PO SCH ×3 (08:02→20:51)
[2017-10-16] MEDS: Enoxaparin 40 MG/0.4 ML Syringe SUBCUT SCH (08:02)
--- NOTE | 2017-10-16 12:19 | CR ---
Aspiration with thin liquids only. Refer to speech pathology notes.
[2017-10-16] MEDS ORDERED: Sodium Chloride 0.9% 500 ML IV SCH (12:30)
--- NOTE | 2017-10-16 12:42 | PCM.PN ---
- General Info Date of Service: 10/16/17 Subjective Update: Mr. Shepherd has remained fairly weak and lethargic, intermittently confused. Blood pressures have been somewhat lower this morning and his oral intake over the past 24 hours has been poor. He is currently receiving a fluid bolus and will plan to reinitiate IV fluids at 50 mL per hour. Swallowing study was obtained today and shows evidence of aspiration of thin liquids. He has remained afebrile and his white count has almost normalized. - Review of Systems General: Reports: Weakness. Denies: Fever, Chills, Appetite Pulmonary: Reports: No Symptoms Cardiovascular: Reports: No Symptoms Gastrointestinal: Reports: No Symptoms - Patient Data Vitals - Most Recent: Last Vital Signs Temp 95.5 F 10/16/17 10:55 Pulse 83 10/16/17 10:55 Resp 21 H 10/16/17 10:55 BP 80/40 L 10/16/17 10:55 Pulse Ox 93 L 10/16/17 10:55 Weight - Most Recent: 143 lb I&O - Last 24 Hours: Intake & Output 10/15/17 10/16/17 10/16/17 22:59 06:59 14:59 Intake Total 200 150 175 Output Total 150 500 125 Balance 50 -350 50 Lab Results Last 24 Hours: Laboratory Results - last 24 hr 10/16/17 10/16/17 Range/Units 05:50 05:50 WBC 11.1 H (4.5-11.0) K/uL RBC 3.02 L (4.30-5.90) M/uL Hgb 9.3 L (12.0-15.0) g/dL Hct 29.7 L (40.0-54.0) % MCV 98 (80-98) fL MCH 31 (27-31) pg MCHC 31 L (32-36) % Plt Count 290 (150-400) K/uL Neut % (Auto) 78 H (36-66) % Lymph % (Auto) 13 L (24-44) % [place] % (Auto) 7 H (2-6) % Eos % (Auto) 2 (2-4) % Baso % (Auto) 0 (0-1) % Sodium 143 (140-148) mmol/L Potassium 3.7 (3.6-5.2) mmol/L Chloride 111 H (100-108) mmol/L Carbon Dioxide 25 (21-32) mmol/L Anion Gap 10.7 (5.0-14.0) mmol/L BUN 29 H (7-18) mg/dL Creatinine 0.8 (0.8-1.3) mg/dL Est Cr Clr Drug Dosing 58.56 mL/min Estimated GFR (MDRD) > 60 (>60) Glucose 89 (74-106) mg/dL Calcium 7.8 L (8.5-10.1) mg/dL Med Orders - Current: Current Medications Acetaminophen (Tylenol) 650 mg PO Q4H PRN PRN Reason: Pain Carbidopa/Levodopa (Sinemet 25-100 Mg) 1 tab PO TID [facility] Last Admin: 10/16/17 08:02 Dose: 1 tab Docusate Sodium (Colace) 200 mg PO ACBREAKFASTANDBED [facility] Last Admin: 10/16/17 08:01 Dose: 200 mg Enoxaparin Sodium (Lovenox) 40 mg SUBCUT DAILY [facility] Last Admin: 10/16/17 08:02 Dose: 40 mg Ceftazidime 1 gm/ Sodium (Chloride) 50 mls @ 100 mls/hr IV Q8H [facility] Last Admin: 10/16/17 05:38 Dose: 100 mls/hr Levofloxacin/Dextrose 750 mg/ (Premix) 150 mls @ 100 mls/hr IV Q24H [facility] Last Admin: 10/16/17 08:02 Dose: 100 mls/hr Sodium Chloride (Normal Saline) 500 mls @ 250 mls/hr IV ASDIRECTED [facility] Sodium Chloride (Normal Saline) 1,000 mls @ 50 mls/hr IV ASDIRECTED [facility] Ondansetron HCl (Zofran Odt) 4 mg PO Q6H PRN PRN Reason: Nausea able to take PO Ondansetron HCl (Zofran) 4 mg IV Q6H PRN PRN Reason: Nausea/Vomiting Polyethylene Glycol (Miralax) 17 gm PO DAILY PRN PRN Reason: Constipation Discontinued Medications Sodium Chloride (Normal Saline) 1,000 mls @ 999 mls/hr IV ASDIRECTED [facility] Last Admin: 10/14/17 10:13 Dose: 999 mls/hr Sodium Chloride (Normal Saline) 1,000 mls @ 300 mls/hr IV ASDIRECTED [facility] Last Admin: 10/14/17 11:28 Dose: 300 mls/hr Levofloxacin/Dextrose 250 mg/ (Premix) 50 mls @ 50 mls/hr IV ONETIME ONE Stop: 10/14/17 12:29 Last Admin: 10/14/17 11:29 Dose: 50 mls/hr Sodium Chloride (Normal Saline) 1,000 mls @ 125 mls/hr IV ASDIRECTED [facility] Last Admin: 10/15/17 10:12 Dose: 125 mls/hr - Exam Quality Assessment: Urine Catheter, DVT Prophylaxis General: Cooperative, Mild Distress, Lethargic Lungs: Clear to Auscultation, Normal Respiratory Effort Cardiovascular: Regular Rate, Regular Rhythm, No Murmurs GI/Abdominal Exam: Normal Bowel Sounds, Soft, Non-Tender, No Distention Extremities: Non-Tender, No Pedal Edema Skin: Warm, Dry, Intact - Problem List Review Problem List Initiated/Reviewed/Updated: Yes - My Orders Last 24 Hours: My Active Orders 10/16/17 12:30 Sodium Chloride 0.9% [Normal Saline] 500 ml IV ASDIRECTED 10/16/17 12:45 Sodium Chloride 0.9% @ 50 MLS/HR(1000ml) Sodium Chloride 0.9% [Normal Saline] 1 ,000 ml IV ASDIRECTED 10/17/17 05:00 BASIC METABOLIC PANEL,BMP [CHEM] Timed CBC WITH AUTO DIFF [HEME] Timed - Plan Plan:: ASSESSMENT AND PLAN - Complicated urinary tract infection - urine sample suggestive of infection and culture from 2 days ago is growing a gram-negative stacey. Identification is pending. Previous urine cultures have grown out unusual organisms. He has received ciprofloxacin by mouth as well as an IV dose of levofloxacin since admission. He has a chronic indwelling catheter. -Ceftazidime -Follow-up cultures -IV fluids Left lower lobe pneumonia - not much of a cough but he did have some crackles on the left side and chest x-ray suggested pneumonia. Oxygenation has been stable since admission. Swallowing study today shows evidence of aspiration of thin liquids. -Thickened liquids -ceftazidime -levofloxacin -Supplement oxygen if needed Parkinson's disease - stable at this time but fairly debilitating. -Continue home medications Stage III chronic kidney disease - Creatinine near baseline at this time. Maintenance issues - - DVT prophylaxis - enoxaparin - GI prophylaxis - not indicated - Nutrition - regular diet - Quinones catheter - chronic indwelling catheter secondary to BPH CODE STATUS - DNR/DNI Admission justification - This patient will be admitted for inpatient services and is medically appropriate meeting medical necessity for inpatient admission as outlined in my documentation. I reasonably expect the patient will require inpatient services that span a period time over 2 midnights. I reasonably expect this patient to be discharged or transferred within 96 hours after admission to the [facility]. Disposition - anticipate discharge back to the alf after the hospital stay Primary care physician - Dr Yuen
[2017-10-16] MEDS: Sodium Chloride 0.9% 1,000 ML IV SCH (12:47)
[2017-10-17] MEDS: cefTAZidime 1 GM in Sodium Chloride 0.9% 50 ML IV SCH ×2 (05:05→13:34)
[2017-10-17] MEDS: Enoxaparin 40 MG/0.4 ML Syringe SUBCUT SCH (08:28)
[2017-10-17] MEDS: Docusate Sodium 100 MG Cap PO SCH ×2 (08:28→20:03)
[2017-10-17] MEDS: Levofloxacin/Dextrose 5%-Water 750 MG in Premix Bag 1 BAG IV SCH (08:28)
[2017-10-17] MEDS: Carbidopa/Levodopa 25-100 MG Tab PO SCH ×3 (08:28→20:03)
[2017-10-17] MEDS: Sodium Chloride 0.9% 1,000 ML IV SCH (15:53)
--- NOTE | 2017-10-17 18:55 | PCM.PN ---
- General Info Date of Service: 10/17/17 Subjective Update: Mr. Shepherd has remained stable since yesterday, this morning seems to be more alert and interactive, reports that he is feeling better. Appetite seems to be improving as well as overall strength. Vital signs have been stable and he has remained afebrile. Functional Status: Reports: Tolerating Diet, Ambulating - Review of Systems General: Reports: Weakness. Denies: Fever, Chills Pulmonary: Reports: No Symptoms Cardiovascular: Reports: No Symptoms Gastrointestinal: Reports: No Symptoms Psychiatric: Reports: Confusion - Patient Data Vitals - Most Recent: Last Vital Signs Temp 97.0 F 10/17/17 15:18 Pulse 78 10/17/17 15:18 Resp 18 10/17/17 15:18 BP 116/61 10/17/17 15:18 Pulse Ox 93 L 10/17/17 15:18 Weight - Most Recent: 143 lb I&O - Last 24 Hours: Intake & Output 10/17/17 10/17/17 10/17/17 06:59 14:59 22:59 Intake Total 717 210 Output Total 700 Balance 17 210 Lab Results Last 24 Hours: Laboratory Results - last 24 hr 10/17/17 10/17/17 Range/Units 04:10 04:10 WBC 9.6 (4.5-11.0) K/uL RBC 3.06 L (4.30-5.90) M/uL Hgb 9.5 L (12.0-15.0) g/dL Hct 29.9 L (40.0-54.0) % MCV 98 (80-98) fL MCH 31 (27-31) pg MCHC 32 (32-36) % Plt Count 304 (150-400) K/uL Neut % (Auto) 71 H (36-66) % Lymph % (Auto) 17 L (24-44) % [place] % (Auto) 8 H (2-6) % Eos % (Auto) 3 (2-4) % Baso % (Auto) 0 (0-1) % Sodium 143 (140-148) mmol/L Potassium 3.9 (3.6-5.2) mmol/L Chloride 111 H (100-108) mmol/L Carbon Dioxide 26 (21-32) mmol/L Anion Gap 9.9 (5.0-14.0) mmol/L BUN 24 H (7-18) mg/dL Creatinine 0.8 (0.8-1.3) mg/dL Est Cr Clr Drug Dosing 58.56 mL/min Estimated GFR (MDRD) > 60 (>60) Glucose 88 (74-106) mg/dL Calcium 7.7 L (8.5-10.1) mg/dL Med Orders - Current: Current Medications Acetaminophen (Tylenol) 650 mg PO Q4H PRN PRN Reason: Pain Carbidopa/Levodopa (Sinemet 25-100 Mg) 1 tab PO TID [facility] Last Admin: 10/17/17 13:21 Dose: 1 tab Docusate Sodium (Colace) 200 mg PO ACBREAKFASTANDBED [facility] Last Admin: 10/17/17 08:28 Dose: 200 mg Enoxaparin Sodium (Lovenox) 40 mg SUBCUT DAILY [facility] Last Admin: 10/17/17 08:28 Dose: 40 mg Levofloxacin/Dextrose 750 mg/ (Premix) 150 mls @ 100 mls/hr IV Q24H [facility] Last Admin: 10/17/17 08:28 Dose: 100 mls/hr Ondansetron HCl (Zofran Odt) 4 mg PO Q6H PRN PRN Reason: Nausea able to take PO Ondansetron HCl (Zofran) 4 mg IV Q6H PRN PRN Reason: Nausea/Vomiting Polyethylene Glycol (Miralax) 17 gm PO DAILY PRN PRN Reason: Constipation Discontinued Medications Sodium Chloride (Normal Saline) 1,000 mls @ 999 mls/hr IV ASDIRECTED [facility] Last Admin: 10/14/17 10:13 Dose: 999 mls/hr Sodium Chloride (Normal Saline) 1,000 mls @ 300 mls/hr IV ASDIRECTED [facility] Last Admin: 10/14/17 11:28 Dose: 300 mls/hr Levofloxacin/Dextrose 250 mg/ (Premix) 50 mls @ 50 mls/hr IV ONETIME ONE Stop: 10/14/17 12:29 Last Admin: 10/14/17 11:29 Dose: 50 mls/hr Ceftazidime 1 gm/ Sodium (Chloride) 50 mls @ 100 mls/hr IV Q8H [facility] Last Admin: 10/17/17 13:34 Dose: 100 mls/hr Sodium Chloride (Normal Saline) 1,000 mls @ 125 mls/hr IV ASDIRECTED [facility] Last Admin: 10/15/17 10:12 Dose: 125 mls/hr Sodium Chloride (Normal Saline) 500 mls @ 250 mls/hr IV ASDIRECTED [facility] Last Admin: 10/16/17 10:10 Dose: 250 mls/hr Sodium Chloride (Normal Saline) 1,000 mls @ 50 mls/hr IV ASDIRECTED [facility] Last Admin: 10/17/17 15:53 Dose: 50 mls/hr - Exam Quality Assessment: DVT Prophylaxis General: Alert, Cooperative, No Acute Distress Lungs: Clear to Auscultation, Normal Respiratory Effort Cardiovascular: Regular Rate, Regular Rhythm, No Murmurs GI/Abdominal Exam: Normal Bowel Sounds, Soft, Non-Tender, No Organomegaly, No Distention Extremities: Non-Tender, No Pedal Edema Skin: Warm, Dry - Problem List Review Problem List Initiated/Reviewed/Updated: Yes - My Orders Last 24 Hours: My Active Orders 10/17/17 18:51 Convert IV to Saline Lock [OM.PC] Routine - Plan Plan:: ASSESSMENT AND PLAN - Complicated urinary tract infection - urine sample suggestive of infection and culture from 2 days ago is growing a gram-negative stacey. Identification is pending. Previous urine cultures have grown out unusual organisms. He has received ciprofloxacin by mouth as well as an IV dose of levofloxacin since admission. He has a chronic indwelling catheter. -Follow-up cultures Left lower lobe pneumonia - improved since admission with no significant respiratory symptoms -Thickened liquids -levofloxacin -Supplement oxygen if needed Parkinson's disease - stable at this time but fairly debilitating. -Continue home medications Stage III chronic kidney disease - Creatinine near baseline at this time. Maintenance issues - - DVT prophylaxis - enoxaparin - GI prophylaxis - not indicated - Nutrition - regular diet - Quinones catheter - chronic indwelling catheter secondary to BPH CODE STATUS - DNR/DNI Admission justification - This patient will be admitted for inpatient services and is medically appropriate meeting medical necessity for inpatient admission as outlined in my documentation. I reasonably expect the patient will require inpatient services that span a period time over 2 midnights. I reasonably expect this patient to be discharged or transferred within 96 hours after admission to the [facility]. Disposition - anticipate discharge back to the snf after the hospital stay Primary care physician - Dr Yuen
[2017-10-18] MEDS ORDERED: Bisacodyl 10 MG Supp RECTAL ONE (03:24)
[2017-10-18] MEDS: Docusate Sodium 100 MG Cap PO SCH (07:29)
[2017-10-18] MEDS: Enoxaparin 40 MG/0.4 ML Syringe SUBCUT SCH (09:11)
[2017-10-18] MEDS: Levofloxacin/Dextrose 5%-Water 750 MG in Premix Bag 1 BAG IV SCH (09:11)
[2017-10-18] MEDS: Carbidopa/Levodopa 25-100 MG Tab PO SCH (09:11)
[2017-10-18 12:09] VITALS: BP 107/59
--- NOTE | 2017-10-18 16:50 | PCM.DCSUM1 ---
Discharge Summary - Hospital Course Brief History: Mr. Shepherd is an 86-year-old gentleman who presented to the emergency department with weakness and dehydration, on evaluation was found to have left lung pneumonia and urinary tract infection. - Discharge Data Discharge Date: 10/18/17 Discharge Disposition: DC/Tfer to SNF 03 Condition: Fair - Discharge Diagnosis/Problem(s) (1) Obstructive uropathy SNOMED Code(s): 7980473 ICD Code: N13.9 - OBSTRUCTIVE AND REFLUX UROPATHY, UNSPECIFIED Status: Acute (2) UTI (urinary tract infection) SNOMED Code(s): 28441569 ICD Code: N39.0 - URINARY TRACT INFECTION, SITE NOT SPECIFIED Status: Acute (3) Dehydration SNOMED Code(s): 00424419 ICD Code: E86.0 - DEHYDRATION Status: Acute (4) Left lower lobe pneumonia SNOMED Code(s): 631235022 ICD Code: J18.1 - LOBAR PNEUMONIA, UNSPECIFIED ORGANISM Status: Acute Qualifiers: Pneumonia type: due to unspecified organism Qualified Code(s): J18.1 - Lobar pneumonia, unspecified organism (5) Parkinson's disease SNOMED Code(s): 10535219 ICD Code: G20 - PARKINSON'S DISEASE Status: Chronic - Patient Summary/Data Consults: Consultations 10/14/17 13:05 PT Evaluation and Treatment [CONS] Routine Please Evaluate and Treat. PT Reason for Consult: Strengthening Special Instructions: start Saturday This query below is only for informational purposes and is not editable. 10/15/17 10:50 Consult to Speech Language Pathology [FIRE LOOKOUT Evaluation and Treatment] [CONS] Routine Please Evaluate and Treat FIRE LOOKOUT Reason for Consult: Please evaluate swallowing, possible aspiration This query below is only for informational purposes and is not editable. Admission Diagnosis/Problem: Acute cystitis Hospital Course: Mr. Shepherd is an 86-year-old gentleman who has a history of Parkinson's disease and recent physical decline. He also has an indwelling Quinones catheter secondary to obstructive uropathy. He had been residing at the custodial and prior to admission developed progressive weakness and fever. On evaluation in emergency department was found to have left lung pneumonia on CT scan as well as a urinary tract infection. He was admitted to the hospital and given IV fluids for hydration as well as IV antibiotic therapy. Blood cultures were obtained on admission and remained negative throughout his hospital stay. Unfortunately urine culture was not obtained. He improved with IV fluids and antibiotic therapy and by the time of discharge was feeling close to his baseline state. He was noted to have difficulty with swallowing and speech therapy consult was obtained. Swallowing study showed some aspiration of thin liquids and he was placed on nectar thickened liquids as well as a soft mechanical diet. He was also seen and evaluated by physical therapy during the hospital stay. He will be discharged back to the custodial for further restorative physical therapy and occupational therapy. Activity will be as tolerated and he will resume his diet as outlined above. - Patient Instructions Diet: Mechanical Soft Diet, Other: Mary[place] thickened liquids Activity: As Tolerated Other/Special Instructions: Indwelling Quinones catheter for obstructive uropathy. Daily restorative physical therapy and occupational therapy while at the custodial. - Discharge Plan Prescriptions/Med Rec: Levofloxacin 500 mg PO DAILY #3 tablet Home Medications: Home Meds Acetaminophen [Tylenol] 650 mg PO Q4H PRN 10/14/17 [History] Bisacodyl [Dulcolax] 1 supp RECTAL Q72H 10/14/17 [History] Carbidopa/Levodopa [Sinemet 25-100 mg Tablet] 1 tab PO TID 10/14/17 [History] Docusate Sodium 200 mg PO ACBREAKFASTANDBED 10/14/17 [History] Glycopyrrolate [Robinul] 1 mg PO TID 10/14/17 [History] Magnesium Hydroxide [Milk of Magnesia] 30 ml PO Q48H 10/14/17 [History] Levofloxacin 500 mg PO DAILY #3 tablet 10/18/17 [Rx] Forms: ED Department Discharge Referrals: PCP,None [Primary Care Provider] - - Patient Data Vitals - Most Recent: Last Vital Signs Temp 97.8 F 10/18/17 12:05 Pulse 59 L 10/18/17 12:05 Resp 18 10/18/17 12:05 BP 107/59 L 10/18/17 12:05 Pulse Ox 95 10/18/17 12:05 Weight - Most Recent: 143 lb I&O - Last 24 hours: Intake & Output 10/18/17 10/18/17 10/18/17 06:59 14:59 22:59 Intake Total 500 150 Output Total 550 Balance -50 150 Med Orders - Current: Current Medications Discontinued Medications Acetaminophen (Tylenol) 650 mg PO Q4H PRN PRN Reason: Pain Bisacodyl (Dulcolax) 10 mg RECTAL ONETIME ONE Stop: 10/18/17 03:25 Last Admin: 10/18/17 04:24 Dose: 10 mg Carbidopa/Levodopa (Sinemet 25-100 Mg) 1 tab PO TID [facility] Last Admin: 10/18/17 09:11 Dose: 1 tab Docusate Sodium (Colace) 200 mg PO ACBREAKFASTANDBED [facility] Last Admin: 10/18/17 07:29 Dose: 200 mg Enoxaparin Sodium (Lovenox) 40 mg SUBCUT DAILY [facility] Last Admin: 10/18/17 09:11 Dose: 40 mg Sodium Chloride (Normal Saline) 1,000 mls @ 999 mls/hr IV ASDIRECTED [facility] Last Admin: 10/14/17 10:13 Dose: 999 mls/hr Sodium Chloride (Normal Saline) 1,000 mls @ 300 mls/hr IV ASDIRECTED [facility] Last Admin: 10/14/17 11:28 Dose: 300 mls/hr Levofloxacin/Dextrose 250 mg/ (Premix) 50 mls @ 50 mls/hr IV ONETIME ONE Stop: 10/14/17 12:29 Last Admin: 10/14/17 11:29 Dose: 50 mls/hr Ceftazidime 1 gm/ Sodium (Chloride) 50 mls @ 100 mls/hr IV Q8H [facility] Last Admin: 10/17/17 13:34 Dose: 100 mls/hr Sodium Chloride (Normal Saline) 1,000 mls @ 125 mls/hr IV ASDIRECTED [facility] Last Admin: 10/15/17 10:12 Dose: 125 mls/hr Levofloxacin/Dextrose 750 mg/ (Premix) 150 mls @ 100 mls/hr IV Q24H [facility] Last Admin: 10/18/17 09:11 Dose: 100 mls/hr Sodium Chloride (Normal Saline) 500 mls @ 250 mls/hr IV ASDIRECTED [facility] Last Admin: 10/16/17 10:10 Dose: 250 mls/hr Sodium Chloride (Normal Saline) 1,000 mls @ 50 mls/hr IV ASDIRECTED [facility] Last Admin: 10/17/17 15:53 Dose: 50 mls/hr Ondansetron HCl (Zofran Odt) 4 mg PO Q6H PRN PRN Reason: Nausea able to take PO Ondansetron HCl (Zofran) 4 mg IV Q6H PRN PRN Reason: Nausea/Vomiting Polyethylene Glycol (Miralax) 17 gm PO DAILY PRN PRN Reason: Constipation *Q Meaningful Use (DIS) - VTE *Q VTE Criteria *Q: - Stroke *Q Stroke Criteria *Q: - AMI *Q AMI Criteria *Q:
== END 2017-10-18 14:30 | DRG 194 ==
LOC: JP.ED 09:54 → JP.MS 11:59
PROVIDERS: ADMIT Internal Medicine; ATTEND Hospitalist
DX: J18.1 Lobar pneumonia, unspecified organism (principal); N39.0 Urinary tract infection, site not specified; N13.8 Other obstructive and reflux uropathy; T83.511D Infection and inflammatory reaction due to indwelling urethral catheter, subsequent encounter; E86.0 Dehydration; Z66 Do not resuscitate; L89.519 Pressure ulcer of right ankle, unspecified stage; G20 Parkinson's disease; R41.0 Disorientation, unspecified; R53.1 Weakness; R09.02 Hypoxemia; N18.3 Chronic kidney disease, stage 3 (moderate); R13.10 Dysphagia, unspecified; M19.90 Unspecified osteoarthritis, unspecified site; H91.90 Unspecified hearing loss, unspecified ear; N40.1 Benign prostatic hyperplasia with lower urinary tract symptoms; Z85.89 Personal history of malignant neoplasm of other organs and systems
CPT/HCPCS: 36415; 80053; 83605; 85025; 87040 ×2; 96360; 96361; 99285; J1956; J7040 ×2; 71010; 71010-26; 74230; 74230-26; 80048; 85027; 92610-GN; 92611-GN; 97116-GP; 97162-GP; 97530-GP; A9270-GY; J0713; J1650; J7050